=== PATIENT | male | born 1955 | race Caucasian/White ===

== ENCOUNTER 2016-06-26 07:33 | Inpatient (IN) | payer MEDICARE, MEDICAID ==
[~2016-06-26] VITALS: Ht 195.6 cm; Wt 172.0 kg
[~2016-06-26 07:33] MED LIST: ACID1TAB7 PO; AMOX1TAB12 PO; CLIN300C93 PO; CYAN10005 PO; DICL75TA2 PO; DOXY100T PO; FOLI-17 PO; FURO-92 PO; HYDR-3241 PO; HYDR12.547 PO; LISI-167 PO; LISI-170 PO; LISI2.5T PO; LISI5TAB7 PO; METF500T4 PO; MICO14CR TP; MULT-750 PO; TRIA15OI TP; WARF10TA PO; WARF10TA6 PO; WARF2TAB PO
[2016-06-26] MEDS ORDERED: SODIUM CHLORIDE 0.9% 1,000 ML IV ONE (07:56)
[2016-06-26] MEDS ORDERED: SODIUM CHLORIDE 0.9% 1,000ML IVBOLUS ONE ×2 (08:00→08:30)
[2016-06-26 08:19] LABS: HEMOGLOBIN 13.3 g/dL (13.7-18.0)
[2016-06-26 08:29] LABS: BLOOD UREA NITROGEN 25 mg/dL (7-18)
[2016-06-26] MEDS ORDERED: AMPICILLIN/SULBACTAM 3 GM in SODIUM CHLORIDE 0.9% 100 ML IVPB ONE (08:30)
[2016-06-26 08:34] LABS: DIFF TOTAL CELLS COUNTED 100 CELL DIFF
[2016-06-26 08:35] LABS: IS PT STATUS REG ER OR PRE ER? YES
[2016-06-26 08:40] LABS: VERIFY COUNTS? YES
[2016-06-26] MEDS ORDERED: SODIUM CHLORIDE FLUSH 10ML SYR IVF PRN (09:30)
[2016-06-26 13:38] VITALS: BP 123/82
[2016-06-26] MEDS ORDERED: LABETALOL 5MG/ML, 20ML IV PRN (14:00)
[2016-06-26] MEDS ORDERED: BISACODYL 10 MG SUPP PR PRN (14:00)
[2016-06-26] MEDS ORDERED: DEXTROSE 4 GM TAB.CHEW PO PRN (14:00)
[2016-06-26] MEDS ORDERED: ENALAPRILAT 1.25 MG/ML, 2ML IVPush PRN (14:00)
[2016-06-26] MEDS ORDERED: ONDANSETRON 2MG/ML, 2ML IVP PRN (14:00)
[2016-06-26] MEDS ORDERED: GLUCAGON 1 MG IM PRN (14:00)
[2016-06-26] MEDS ORDERED: VANCOMYCIN PER PHARMACY MC PRN (14:00)
[2016-06-26] MEDS ORDERED: PHARMACOKINETIC MONITORING MC PRN (14:00)
[2016-06-26] MEDS ORDERED: ACETAMINOPHEN 325 MG TABLET PO PRN (14:00)
[2016-06-26] MEDS ORDERED: DEXTROSE 50%, 50ML SYRINGE IVPush PRN (14:00)
[2016-06-26] MEDS ORDERED: VANCOMYCIN 2,500 MG in SODIUM CHLORIDE 0.9% 500 ML IV SCH (14:30)
[2016-06-26] MEDS: THIAMINE 200 MG in SODIUM CHLORIDE 0.9% 50 ML IV SCH (15:37)
[2016-06-26] MEDS: ENOXAPARIN 40 MG/0.4 ML SQ SCH (15:40)
[2016-06-26] MEDS: NICOTINE 21 MG/24 HR PATCH.TD24 TD SCH (15:40)
[2016-06-26] MEDS: AMPICILLIN/SULBACTAM 3 GM in SODIUM CHLORIDE 0.9% 100 ML IV SCH ×2 (17:04→22:58)
[2016-06-26] MEDS: INSULIN ASPART 100 UNITS/ML, PEN SQ-INSULIN SCH ×2 (17:15→21:17)
[2016-06-26 19:48] VITALS: BP 134/88
[2016-06-26] MEDS: SODIUM CHLORIDE FLUSH 10ML SYR IVF SCH (21:16)
[2016-06-26] MEDS: INSULIN DETEMIR 100 UNITS/ML, PEN SQ-INSULIN SCH (21:18)
[2016-06-27 01:28] VITALS: BP 129/82
[2016-06-27] MEDS: AMPICILLIN/SULBACTAM 3 GM in SODIUM CHLORIDE 0.9% 100 ML IV SCH ×4 (05:07→23:28)
[2016-06-27 05:27] LABS: HEMOGLOBIN 12.2 g/dL (13.7-18.0)
[2016-06-27 05:33] LABS: BLOOD UREA NITROGEN 17 mg/dL (7-18)
[2016-06-27 05:36] LABS: ASPARTATE AMINO TRANSFERASE 97 U/L (15-37)
[2016-06-27 06:00] LABS: DIFF TOTAL CELLS COUNTED 100 CELL DIFF
[2016-06-27 06:01] LABS: VERIFY COUNTS? YES
[2016-06-27 06:53] VITALS: BP 111/70
[2016-06-27] MEDS: INSULIN ASPART 100 UNITS/ML, PEN SQ-INSULIN SCH ×4 (07:00→20:37)
[2016-06-27] MEDS: THIAMINE 200 MG in SODIUM CHLORIDE 0.9% 50 ML IV SCH (08:45)
[2016-06-27] MEDS: SODIUM CHLORIDE FLUSH 10ML SYR IVF SCH ×2 (08:46→20:37)
[2016-06-27] MEDS: MULTIVITAMIN 1 TABLET PO SCH (08:46)
[2016-06-27] MEDS: FOLIC ACID 1 MG TABLET PO SCH (08:46)
[2016-06-27] MEDS: LISINOPRIL 20 MG TABLET PO SCH (08:46)
[2016-06-27] MEDS: INSULIN DETEMIR 100 UNITS/ML, PEN SQ-INSULIN SCH ×2 (08:47→20:36)
[2016-06-27] MEDS: CYANOCOBALAMIN 1,000 MCG TABLET PO SCH (08:47)
[2016-06-27] MEDS: NICOTINE 21 MG/24 HR PATCH.TD24 TD SCH (14:00)
[2016-06-27 15:02] VITALS: BP 113/67
[2016-06-27] MEDS: ENOXAPARIN 40 MG/0.4 ML SQ SCH (15:07)
[2016-06-27 19:23] VITALS: BP 106/67
[2016-06-27] MEDS: FUROSEMIDE 20 MG/2 ML IV SCH (20:36)
[2016-06-28 01:33] VITALS: BP 94/60
[2016-06-28 05:19] LABS: BLOOD UREA NITROGEN 26 mg/dL (7-18)
[2016-06-28 05:24] LABS: HEMOGLOBIN 11.7 g/dL (13.7-18.0)
[2016-06-28] MEDS: AMPICILLIN/SULBACTAM 3 GM in SODIUM CHLORIDE 0.9% 100 ML IV SCH ×4 (05:40→23:11)
[2016-06-28 05:59] LABS: DIFF TOTAL CELLS COUNTED 100 CELL DIFF
[2016-06-28 06:01] LABS: VERIFY COUNTS? YES
[2016-06-28 06:44] VITALS: BP 145/69
[2016-06-28] MEDS: INSULIN ASPART 100 UNITS/ML, PEN SQ-INSULIN SCH ×4 (07:00→20:59)
[2016-06-28] MEDS: FUROSEMIDE 20 MG/2 ML IV SCH (08:01)
[2016-06-28] MEDS: INSULIN DETEMIR 100 UNITS/ML, PEN SQ-INSULIN SCH ×2 (08:03→21:00)
[2016-06-28] MEDS: MULTIVITAMIN 1 TABLET PO SCH (08:04)
[2016-06-28] MEDS: FOLIC ACID 1 MG TABLET PO SCH (08:04)
[2016-06-28] MEDS: LISINOPRIL 20 MG TABLET PO SCH (08:04)
[2016-06-28] MEDS: CYANOCOBALAMIN 1,000 MCG TABLET PO SCH (08:04)
[2016-06-28] MEDS: SODIUM CHLORIDE FLUSH 10ML SYR IVF SCH ×2 (08:04→20:02)
[2016-06-28] MEDS: THIAMINE 200 MG in SODIUM CHLORIDE 0.9% 50 ML IV SCH (09:27)
[2016-06-28] MEDS: POLYETHYLENE GLYCOL 17 GM PACKET PO PRN (09:27)
[2016-06-28] MEDS ORDERED: VANCOMYCIN PER PHARMACY MC PRN (11:30)
[2016-06-28] MEDS ORDERED: PHARMACOKINETIC MONITORING MC PRN (12:00)
[2016-06-28] MEDS: NICOTINE 21 MG/24 HR PATCH.TD24 TD SCH (12:04)
[2016-06-28] MEDS: VANCOMYCIN 2,500 MG in SODIUM CHLORIDE 0.9% 500 ML IV SCH (12:29)
[2016-06-28] MEDS: ENOXAPARIN 40 MG/0.4 ML SQ SCH (13:44)
[2016-06-28 14:19] VITALS: BP 105/62
[2016-06-28] MEDS ORDERED: VANCOMYCIN 2,500 MG in SODIUM CHLORIDE 0.9% 500 ML IV SCH (18:00)
[2016-06-28 19:54] VITALS: BP 108/66
[2016-06-29 01:53] VITALS: BP 116/71
[2016-06-29] MEDS: AMPICILLIN/SULBACTAM 3 GM in SODIUM CHLORIDE 0.9% 100 ML IV SCH ×4 (04:38→22:52)
[2016-06-29 05:21] LABS: HEMOGLOBIN 11.3 g/dL (13.7-18.0)
[2016-06-29 05:32] LABS: BLOOD UREA NITROGEN 25 mg/dL (7-18)
[2016-06-29 06:13] LABS: DIFF TOTAL CELLS COUNTED 100 CELL DIFF
[2016-06-29 06:15] LABS: ANISOCYTOSIS 1+; VERIFY COUNTS? YES
[2016-06-29 06:16] LABS: LARGE PLATELETS 1+
[2016-06-29 06:54] VITALS: BP 109/64
[2016-06-29] MEDS: INSULIN ASPART 100 UNITS/ML, PEN SQ-INSULIN SCH ×4 (07:00→20:12)
[2016-06-29] MEDS: MULTIVITAMIN 1 TABLET PO SCH (09:15)
[2016-06-29] MEDS: LISINOPRIL 20 MG TABLET PO SCH (09:15)
[2016-06-29] MEDS: FOLIC ACID 1 MG TABLET PO SCH (09:17)
[2016-06-29] MEDS: CYANOCOBALAMIN 1,000 MCG TABLET PO SCH (09:18)
[2016-06-29] MEDS: SODIUM CHLORIDE FLUSH 10ML SYR IVF SCH ×2 (09:20→19:50)
[2016-06-29] MEDS: THIAMINE 200 MG in SODIUM CHLORIDE 0.9% 50 ML IV SCH (09:20)
[2016-06-29] MEDS: INSULIN DETEMIR 100 UNITS/ML, PEN SQ-INSULIN SCH ×2 (09:22→20:12)
[2016-06-29] MEDS: VANCOMYCIN 2,500 MG in SODIUM CHLORIDE 0.9% 500 ML IV SCH (12:35)
[2016-06-29] MEDS: NICOTINE 21 MG/24 HR PATCH.TD24 TD SCH (14:01)
[2016-06-29 14:49] VITALS: BP 122/74
[2016-06-29] MEDS: ENOXAPARIN 40 MG/0.4 ML SQ SCH (14:53)
[2016-06-29 19:38] VITALS: BP 128/75
[2016-06-29] MEDS: POLYETHYLENE GLYCOL 17 GM PACKET PO PRN (19:49)
[2016-06-30 02:00] VITALS: BP 128/76
[2016-06-30] MEDS: AMPICILLIN/SULBACTAM 3 GM in SODIUM CHLORIDE 0.9% 100 ML IV SCH ×4 (04:58→23:16)
[2016-06-30] MEDS: INSULIN ASPART 100 UNITS/ML, PEN SQ-INSULIN SCH ×4 (07:34→20:55)
[2016-06-30] MEDS: LISINOPRIL 20 MG TABLET PO SCH (08:39)
[2016-06-30] MEDS: MULTIVITAMIN 1 TABLET PO SCH (08:39)
[2016-06-30] MEDS: FOLIC ACID 1 MG TABLET PO SCH (08:39)
[2016-06-30] MEDS: INSULIN DETEMIR 100 UNITS/ML, PEN SQ-INSULIN SCH ×2 (08:40→20:56)
[2016-06-30] MEDS: CYANOCOBALAMIN 1,000 MCG TABLET PO SCH (08:40)
[2016-06-30 09:03] VITALS: BP 143/84
[2016-06-30] MEDS: THIAMINE 200 MG in SODIUM CHLORIDE 0.9% 50 ML IV SCH (09:37)
[2016-06-30] MEDS: SODIUM CHLORIDE FLUSH 10ML SYR IVF SCH ×2 (09:37→20:56)
[2016-06-30] MEDS: VANCOMYCIN 2,500 MG in SODIUM CHLORIDE 0.9% 500 ML IV SCH (12:36)
[2016-06-30 14:12] VITALS: BP 144/86
[2016-06-30] MEDS: ENOXAPARIN 40 MG/0.4 ML SQ SCH (14:31)
[2016-06-30] MEDS: NICOTINE 21 MG/24 HR PATCH.TD24 TD SCH (14:32)
[2016-06-30 20:32] VITALS: BP 158/82
[2016-07-01 01:49] VITALS: BP 138/76
[2016-07-01] MEDS: AMPICILLIN/SULBACTAM 3 GM in SODIUM CHLORIDE 0.9% 100 ML IV SCH ×4 (04:52→23:11)
[2016-07-01 05:55] LABS: HEMOGLOBIN 11.4 g/dL (13.7-18.0)
[2016-07-01 06:00] LABS: BLOOD UREA NITROGEN 11 mg/dL (7-18)
[2016-07-01] MEDS ORDERED: VANCOMYCIN 2,500 MG in SODIUM CHLORIDE 0.9% 500 ML IV SCH (06:00)
[2016-07-01 06:37] LABS: DIFF TOTAL CELLS COUNTED 100 CELL DIFF
[2016-07-01 06:40] LABS: ANISOCYTOSIS 1+; VERIFY COUNTS? YES
[2016-07-01] MEDS: INSULIN ASPART 100 UNITS/ML, PEN SQ-INSULIN SCH ×4 (07:00→21:08)
[2016-07-01 07:33] VITALS: BP 157/80
[2016-07-01] MEDS: FOLIC ACID 1 MG TABLET PO SCH (08:31)
[2016-07-01] MEDS: SODIUM CHLORIDE FLUSH 10ML SYR IVF SCH ×2 (08:31→21:09)
[2016-07-01] MEDS: MULTIVITAMIN 1 TABLET PO SCH (08:31)
[2016-07-01] MEDS: LISINOPRIL 20 MG TABLET PO SCH (08:31)
[2016-07-01] MEDS: CYANOCOBALAMIN 1,000 MCG TABLET PO SCH (08:31)
[2016-07-01] MEDS: INSULIN DETEMIR 100 UNITS/ML, PEN SQ-INSULIN SCH ×2 (08:32→21:08)
[2016-07-01] MEDS: THIAMINE 200 MG in SODIUM CHLORIDE 0.9% 50 ML IV SCH (09:09)
[2016-07-01 14:38] VITALS: BP 149/78
[2016-07-01] MEDS: NICOTINE 21 MG/24 HR PATCH.TD24 TD SCH (14:57)
[2016-07-01] MEDS: ENOXAPARIN 40 MG/0.4 ML SQ SCH (14:57)
[2016-07-01] MEDS ORDERED: OMNIPAQUE 350 MG/ML, 100ML BOTTLE ONE (16:40)
[2016-07-01] MEDS: CLINDAMYCIN PMX 600MG/50ML 50 ML IV SCH ×2 (16:41→21:07)
[2016-07-01 18:50] VITALS: BP 156/90
[2016-07-02 01:43] VITALS: BP 168/91
[2016-07-02] MEDS: CLINDAMYCIN PMX 600MG/50ML 50 ML IV SCH ×4 (03:22→21:59)
[2016-07-02] MEDS: AMPICILLIN/SULBACTAM 3 GM in SODIUM CHLORIDE 0.9% 100 ML IV SCH ×4 (04:26→23:08)
[2016-07-02 05:59] LABS: HEMOGLOBIN 10.9 g/dL (13.7-18.0)
[2016-07-02 06:23] LABS: DIFF TOTAL CELLS COUNTED 100 CELL DIFF
[2016-07-02 06:25] LABS: VERIFY COUNTS? YES
[2016-07-02 06:47] VITALS: BP_SYST 150; BP_SYST 166; BP_DIAS 76; BP_DIAS 96
[2016-07-02] MEDS: INSULIN ASPART 100 UNITS/ML, PEN SQ-INSULIN SCH ×4 (07:00→22:00)
[2016-07-02] MEDS: CYANOCOBALAMIN 1,000 MCG TABLET PO SCH (08:53)
[2016-07-02] MEDS: FOLIC ACID 1 MG TABLET PO SCH (08:55)
[2016-07-02] MEDS: LISINOPRIL 20 MG TABLET PO SCH (08:56)
[2016-07-02] MEDS: MULTIVITAMIN 1 TABLET PO SCH (08:57)
[2016-07-02] MEDS: INSULIN DETEMIR 100 UNITS/ML, PEN SQ-INSULIN SCH ×2 (08:59→22:00)
[2016-07-02] MEDS: SODIUM CHLORIDE FLUSH 10ML SYR IVF SCH ×2 (09:45→21:59)
[2016-07-02] MEDS: THIAMINE 200 MG in SODIUM CHLORIDE 0.9% 50 ML IV SCH (09:45)
[2016-07-02 14:17] VITALS: BP 147/86
[2016-07-02] MEDS: NICOTINE 21 MG/24 HR PATCH.TD24 TD SCH (15:08)
[2016-07-02] MEDS: ENOXAPARIN 40 MG/0.4 ML SQ SCH (15:08)
[2016-07-02 19:29] VITALS: BP 150/83
[2016-07-03 01:29] VITALS: BP 143/79
[2016-07-03] MEDS: CLINDAMYCIN PMX 600MG/50ML 50 ML IV SCH ×4 (03:25→23:05)
[2016-07-03] MEDS: AMPICILLIN/SULBACTAM 3 GM in SODIUM CHLORIDE 0.9% 100 ML IV SCH ×3 (05:06→20:10)
[2016-07-03] MEDS: INSULIN ASPART 100 UNITS/ML, PEN SQ-INSULIN SCH ×4 (07:00→20:28)
[2016-07-03 07:01] VITALS: BP 150/87
[2016-07-03] MEDS: INSULIN DETEMIR 100 UNITS/ML, PEN SQ-INSULIN SCH ×2 (08:48→20:27)
[2016-07-03] MEDS: LISINOPRIL 20 MG TABLET PO SCH (08:48)
[2016-07-03] MEDS: FOLIC ACID 1 MG TABLET PO SCH (08:49)
[2016-07-03] MEDS: MULTIVITAMIN 1 TABLET PO SCH (08:49)
[2016-07-03] MEDS: CYANOCOBALAMIN 1,000 MCG TABLET PO SCH (08:49)
[2016-07-03] MEDS: SODIUM CHLORIDE FLUSH 10ML SYR IVF SCH ×2 (08:50→20:31)
[2016-07-03] MEDS: POLYETHYLENE GLYCOL 17 GM PACKET PO PRN (08:56)
[2016-07-03] MEDS: THIAMINE 200 MG in SODIUM CHLORIDE 0.9% 50 ML IV SCH (10:41)
[2016-07-03 13:58] VITALS: BP 158/88
[2016-07-03] MEDS: ENOXAPARIN 40 MG/0.4 ML SQ SCH (14:19)
[2016-07-03] MEDS: NICOTINE 21 MG/24 HR PATCH.TD24 TD SCH (14:20)
[2016-07-03 19:28] VITALS: BP 177/75
[2016-07-03 20:20] VITALS: BP 160/90
[2016-07-04] MEDS: AMPICILLIN/SULBACTAM 3 GM in SODIUM CHLORIDE 0.9% 100 ML IV SCH ×2 (02:22→08:44)
[2016-07-04] MEDS: CLINDAMYCIN PMX 600MG/50ML 50 ML IV SCH ×2 (03:48→10:57)
[2016-07-04 05:52] LABS: HEMOGLOBIN 11.5 g/dL (13.7-18.0)
[2016-07-04 06:10] LABS: DIFF TOTAL CELLS COUNTED 100 CELL DIFF
[2016-07-04 06:12] LABS: VERIFY COUNTS? YES
[2016-07-04] MEDS: INSULIN ASPART 100 UNITS/ML, PEN SQ-INSULIN SCH ×4 (07:00→21:53)
[2016-07-04 07:11] VITALS: BP 153/80
[2016-07-04] MEDS: SODIUM CHLORIDE FLUSH 10ML SYR IVF SCH ×2 (09:00→21:52)
[2016-07-04] MEDS: FOLIC ACID 1 MG TABLET PO SCH (10:03)
[2016-07-04] MEDS: CYANOCOBALAMIN 1,000 MCG TABLET PO SCH (10:03)
[2016-07-04] MEDS: INSULIN DETEMIR 100 UNITS/ML, PEN SQ-INSULIN SCH ×2 (10:03→21:53)
[2016-07-04] MEDS: MULTIVITAMIN 1 TABLET PO SCH (10:03)
[2016-07-04] MEDS: THIAMINE 200 MG in SODIUM CHLORIDE 0.9% 50 ML IV SCH (10:03)
[2016-07-04] MEDS: LISINOPRIL 20 MG TABLET PO SCH (10:03)
[2016-07-04] MEDS: NICOTINE 21 MG/24 HR PATCH.TD24 TD SCH (13:30)
[2016-07-04] MEDS: ENOXAPARIN 40 MG/0.4 ML SQ SCH (13:31)
[2016-07-04] MEDS: CEFTAROLINE 600 MG in SODIUM CHLORIDE 0.9% 100 ML IV SCH ×2 (13:31→21:52)
[2016-07-04 13:56] VITALS: BP 155/88
[2016-07-04 19:51] VITALS: BP 143/88
[2016-07-05 02:01] VITALS: BP 163/84
[2016-07-05] MEDS: CEFTAROLINE 600 MG in SODIUM CHLORIDE 0.9% 100 ML IV SCH ×3 (04:28→20:50)
[2016-07-05 05:48] LABS: BLOOD UREA NITROGEN 8 mg/dL (7-18)
[2016-07-05 06:00] LABS: HEMOGLOBIN 11.1 g/dL (13.7-18.0)
[2016-07-05] MEDS: INSULIN ASPART 100 UNITS/ML, PEN SQ-INSULIN SCH ×4 (07:00→21:04)
[2016-07-05 07:25] LABS: DIFF TOTAL CELLS COUNTED 100 CELL DIFF
[2016-07-05 07:29] LABS: LARGE PLATELETS 1+
[2016-07-05 07:30] LABS: VERIFY COUNTS? YES
[2016-07-05 07:42] VITALS: BP 163/86
[2016-07-05] MEDS: SODIUM CHLORIDE FLUSH 10ML SYR IVF SCH ×2 (09:36→20:50)
[2016-07-05] MEDS: THIAMINE 200 MG in SODIUM CHLORIDE 0.9% 50 ML IV SCH (09:37)
[2016-07-05] MEDS: CYANOCOBALAMIN 1,000 MCG TABLET PO SCH (09:37)
[2016-07-05] MEDS: FOLIC ACID 1 MG TABLET PO SCH (09:38)
[2016-07-05] MEDS: LISINOPRIL 20 MG TABLET PO SCH (09:38)
[2016-07-05] MEDS: MULTIVITAMIN 1 TABLET PO SCH (09:38)
[2016-07-05] MEDS: INSULIN DETEMIR 100 UNITS/ML, PEN SQ-INSULIN SCH ×2 (09:44→21:04)
[2016-07-05 13:02] VITALS: BP 162/83
[2016-07-05] MEDS: NICOTINE 21 MG/24 HR PATCH.TD24 TD SCH (14:00)
[2016-07-05] MEDS: ENOXAPARIN 40 MG/0.4 ML SQ SCH (14:12)
[2016-07-05 19:32] VITALS: BP 166/96
[2016-07-06] MEDS: POLYETHYLENE GLYCOL 17 GM PACKET PO PRN (00:31)
[2016-07-06 00:55] VITALS: BP 160/87
[2016-07-06] MEDS: CEFTAROLINE 600 MG in SODIUM CHLORIDE 0.9% 100 ML IV SCH ×3 (04:25→20:31)
[2016-07-06 06:18] LABS: HEMOGLOBIN 11.5 g/dL (13.7-18.0)
[2016-07-06 06:27] LABS: BLOOD UREA NITROGEN 7 mg/dL (7-18)
[2016-07-06] MEDS: INSULIN ASPART 100 UNITS/ML, PEN SQ-INSULIN SCH ×4 (07:00→20:49)
[2016-07-06 07:29] VITALS: BP 165/88
[2016-07-06] MEDS: THIAMINE 200 MG in SODIUM CHLORIDE 0.9% 50 ML IV SCH (08:24)
[2016-07-06] MEDS: INSULIN DETEMIR 100 UNITS/ML, PEN SQ-INSULIN SCH ×2 (08:24→20:49)
[2016-07-06] MEDS: LISINOPRIL 20 MG TABLET PO SCH (08:25)
[2016-07-06] MEDS: FOLIC ACID 1 MG TABLET PO SCH (08:25)
[2016-07-06] MEDS: CYANOCOBALAMIN 1,000 MCG TABLET PO SCH (08:25)
[2016-07-06] MEDS: MULTIVITAMIN 1 TABLET PO SCH (08:25)
[2016-07-06] MEDS: SODIUM CHLORIDE FLUSH 10ML SYR IVF SCH ×2 (08:31→20:31)
[2016-07-06 09:05] LABS: DIFF TOTAL CELLS COUNTED 100 CELL DIFF
[2016-07-06 09:07] LABS: VERIFY COUNTS? YES
[2016-07-06 09:08] LABS: ANISOCYTOSIS 1+; LARGE PLATELETS 1+
[2016-07-06 13:26] VITALS: BP 160/80
[2016-07-06] MEDS: NICOTINE 21 MG/24 HR PATCH.TD24 TD SCH (14:00)
[2016-07-06] MEDS: ENOXAPARIN 40 MG/0.4 ML SQ SCH (14:05)
[2016-07-06 19:41] VITALS: BP 170/87
[2016-07-07 01:39] VITALS: BP 154/81
[2016-07-07] MEDS: CEFTAROLINE 600 MG in SODIUM CHLORIDE 0.9% 100 ML IV SCH ×3 (04:35→20:34)
[2016-07-07 05:41] LABS: HEMOGLOBIN 11.7 g/dL (13.7-18.0)
[2016-07-07 05:56] LABS: BLOOD UREA NITROGEN 8 mg/dL (7-18)
[2016-07-07] MEDS: INSULIN ASPART 100 UNITS/ML, PEN SQ-INSULIN SCH ×4 (07:00→20:45)
[2016-07-07] MEDS: CYANOCOBALAMIN 1,000 MCG TABLET PO SCH (07:20)
[2016-07-07] MEDS: LISINOPRIL 20 MG TABLET PO SCH (07:20)
[2016-07-07] MEDS: MULTIVITAMIN 1 TABLET PO SCH (07:21)
[2016-07-07] MEDS: SODIUM CHLORIDE FLUSH 10ML SYR IVF SCH ×2 (07:21→20:34)
[2016-07-07] MEDS: FOLIC ACID 1 MG TABLET PO SCH (07:21)
[2016-07-07] MEDS: INSULIN DETEMIR 100 UNITS/ML, PEN SQ-INSULIN SCH ×2 (07:22→20:46)
[2016-07-07 07:36] VITALS: BP 161/84
[2016-07-07] MEDS: THIAMINE 200 MG in SODIUM CHLORIDE 0.9% 50 ML IV SCH (09:35)
[2016-07-07] MEDS: NICOTINE 21 MG/24 HR PATCH.TD24 TD SCH (14:00)
[2016-07-07 14:27] VITALS: BP 149/75
[2016-07-07] MEDS: ENOXAPARIN 40 MG/0.4 ML SQ SCH (15:37)
[2016-07-07 19:11] VITALS: BP 153/87
[2016-07-08] MEDS: ENOXAPARIN 40 MG/0.4 ML SQ SCH ×2 (02:00→13:25)
[2016-07-08 02:20] VITALS: BP 147/80
[2016-07-08] MEDS: CEFTAROLINE 600 MG in SODIUM CHLORIDE 0.9% 100 ML IV SCH ×3 (04:42→20:43)
[2016-07-08 05:59] LABS: HEMOGLOBIN 11.4 g/dL (13.7-18.0)
[2016-07-08 06:07] LABS: ASPARTATE AMINO TRANSFERASE 12 U/L (15-37); BLOOD UREA NITROGEN 9 mg/dL (7-18)
[2016-07-08] MEDS: INSULIN ASPART 100 UNITS/ML, PEN SQ-INSULIN SCH ×4 (07:00→20:47)
[2016-07-08 07:47] VITALS: BP 147/82
[2016-07-08] MEDS: THIAMINE 200 MG in SODIUM CHLORIDE 0.9% 50 ML IV SCH (08:59)
[2016-07-08] MEDS: SODIUM CHLORIDE FLUSH 10ML SYR IVF SCH ×2 (08:59→20:43)
[2016-07-08] MEDS: CYANOCOBALAMIN 1,000 MCG TABLET PO SCH (09:00)
[2016-07-08] MEDS: MULTIVITAMIN 1 TABLET PO SCH (09:00)
[2016-07-08] MEDS: FOLIC ACID 1 MG TABLET PO SCH (09:00)
[2016-07-08] MEDS: LISINOPRIL 20 MG TABLET PO SCH (09:00)
[2016-07-08] MEDS: INSULIN DETEMIR 100 UNITS/ML, PEN SQ-INSULIN SCH ×2 (09:01→20:48)
[2016-07-08] MEDS: NICOTINE 21 MG/24 HR PATCH.TD24 TD SCH (13:20)
[2016-07-08 13:28] VITALS: BP 159/82
[2016-07-08] MEDS: POLYETHYLENE GLYCOL 17 GM PACKET PO PRN (15:35)
[2016-07-08 19:13] VITALS: BP 167/89
[2016-07-09 01:27] VITALS: BP 154/83
[2016-07-09] MEDS: ENOXAPARIN 40 MG/0.4 ML SQ SCH ×2 (01:30→14:38)
[2016-07-09] MEDS: CEFTAROLINE 600 MG in SODIUM CHLORIDE 0.9% 100 ML IV SCH ×3 (04:10→20:27)
[2016-07-09 06:01] LABS: HEMOGLOBIN 11.5 g/dL (13.7-18.0)
[2016-07-09 06:16] LABS: BLOOD UREA NITROGEN 9 mg/dL (7-18)
[2016-07-09] MEDS: INSULIN ASPART 100 UNITS/ML, PEN SQ-INSULIN SCH ×4 (07:00→20:31)
[2016-07-09 07:50] VITALS: BP 135/83
[2016-07-09] MEDS: INSULIN DETEMIR 100 UNITS/ML, PEN SQ-INSULIN SCH ×2 (08:45→20:39)
[2016-07-09] MEDS: SODIUM CHLORIDE FLUSH 10ML SYR IVF SCH ×2 (08:46→20:28)
[2016-07-09] MEDS: THIAMINE 200 MG in SODIUM CHLORIDE 0.9% 50 ML IV SCH (08:46)
[2016-07-09] MEDS: CYANOCOBALAMIN 1,000 MCG TABLET PO SCH (08:46)
[2016-07-09] MEDS: LISINOPRIL 20 MG TABLET PO SCH (08:46)
[2016-07-09] MEDS: FOLIC ACID 1 MG TABLET PO SCH (08:46)
[2016-07-09] MEDS: MULTIVITAMIN 1 TABLET PO SCH (08:46)
[2016-07-09] MEDS: NICOTINE 21 MG/24 HR PATCH.TD24 TD SCH (14:00)
[2016-07-09 15:40] VITALS: BP 146/82
[2016-07-09] MEDS ORDERED: ACETAMINOPHEN 500 MG TABLET PO ONE (18:00)
[2016-07-09] MEDS: DIPHENHYDRAMINE 50 MG CAPSULE PO PRN (18:13)
[2016-07-09 19:46] VITALS: BP 119/70
[2016-07-10] MEDS: ENOXAPARIN 40 MG/0.4 ML SQ SCH ×2 (01:50→14:51)
[2016-07-10 02:15] VITALS: BP 143/74
[2016-07-10] MEDS: CEFTAROLINE 600 MG in SODIUM CHLORIDE 0.9% 100 ML IV SCH (04:17)
[2016-07-10] MEDS: DIPHENHYDRAMINE 50 MG CAPSULE PO PRN (04:23)
[2016-07-10] MEDS: INSULIN ASPART 100 UNITS/ML, PEN SQ-INSULIN SCH ×4 (07:00→21:00)
[2016-07-10 07:59] VITALS: BP 132/75
[2016-07-10] MEDS: SODIUM CHLORIDE FLUSH 10ML SYR IVF SCH ×2 (09:00→19:51)
[2016-07-10] MEDS: FOLIC ACID 1 MG TABLET PO SCH (09:18)
[2016-07-10] MEDS: INSULIN DETEMIR 100 UNITS/ML, PEN SQ-INSULIN SCH ×2 (09:18→21:01)
[2016-07-10] MEDS: MULTIVITAMIN 1 TABLET PO SCH (09:19)
[2016-07-10] MEDS: CYANOCOBALAMIN 1,000 MCG TABLET PO SCH (09:19)
[2016-07-10] MEDS: THIAMINE 100MG TABLET PO SCH (09:20)
[2016-07-10] MEDS: LISINOPRIL 20 MG TABLET PO SCH (09:21)
[2016-07-10] MEDS: DAPTOMYCIN 700 MG in SODIUM CHLORIDE 0.9% 100 ML IV SCH (11:46)
[2016-07-10] MEDS: NICOTINE 21 MG/24 HR PATCH.TD24 TD SCH (14:00)
[2016-07-10 15:01] VITALS: BP 159/80
[2016-07-10 19:29] VITALS: BP 153/75
[2016-07-11 02:17] VITALS: BP 163/84
[2016-07-11] MEDS: ENOXAPARIN 40 MG/0.4 ML SQ SCH ×2 (03:00→15:33)
[2016-07-11 05:56] LABS: HEMOGLOBIN 11.6 g/dL (13.7-18.0)
[2016-07-11] MEDS: INSULIN ASPART 100 UNITS/ML, PEN SQ-INSULIN SCH ×4 (07:00→20:11)
[2016-07-11 07:18] VITALS: BP 150/81
[2016-07-11] MEDS: INSULIN DETEMIR 100 UNITS/ML, PEN SQ-INSULIN SCH ×2 (08:39→20:14)
[2016-07-11] MEDS: SODIUM CHLORIDE FLUSH 10ML SYR IVF SCH ×2 (08:39→20:10)
[2016-07-11] MEDS: FOLIC ACID 1 MG TABLET PO SCH (09:12)
[2016-07-11] MEDS: MULTIVITAMIN 1 TABLET PO SCH (09:13)
[2016-07-11] MEDS: LISINOPRIL 20 MG TABLET PO SCH (09:14)
[2016-07-11] MEDS: CYANOCOBALAMIN 1,000 MCG TABLET PO SCH (09:18)
[2016-07-11] MEDS: THIAMINE 100MG TABLET PO SCH (09:18)
[2016-07-11] MEDS: NICOTINE 21 MG/24 HR PATCH.TD24 TD SCH (09:19)
[2016-07-11] MEDS: DAPTOMYCIN 700 MG in SODIUM CHLORIDE 0.9% 100 ML IV SCH (12:12)
[2016-07-11 14:20] VITALS: BP 144/81
[2016-07-11] MEDS: LINEZOLID 600 MG TABLET PO SCH (18:42)
[2016-07-11 19:55] VITALS: BP 153/85
[2016-07-12 02:00] VITALS: BP 150/82
[2016-07-12] MEDS: ENOXAPARIN 40 MG/0.4 ML SQ SCH ×2 (02:05→15:22)
[2016-07-12] MEDS: POLYETHYLENE GLYCOL 17 GM PACKET PO PRN (03:56)
[2016-07-12] MEDS: DIPHENHYDRAMINE 50 MG CAPSULE PO PRN ×3 (03:56→18:05)
[2016-07-12] MEDS: LINEZOLID 600 MG TABLET PO SCH ×2 (05:42→18:02)
[2016-07-12 06:55] VITALS: BP 148/83
[2016-07-12] MEDS: INSULIN ASPART 100 UNITS/ML, PEN SQ-INSULIN SCH ×4 (07:00→21:00)
[2016-07-12] MEDS: THIAMINE 100MG TABLET PO SCH (07:43)
[2016-07-12] MEDS: LISINOPRIL 20 MG TABLET PO SCH (07:43)
[2016-07-12] MEDS: FOLIC ACID 1 MG TABLET PO SCH (07:43)
[2016-07-12] MEDS: MULTIVITAMIN 1 TABLET PO SCH (07:43)
[2016-07-12] MEDS: CYANOCOBALAMIN 1,000 MCG TABLET PO SCH (07:43)
[2016-07-12] MEDS: SODIUM CHLORIDE FLUSH 10ML SYR IVF SCH ×2 (07:44→21:00)
[2016-07-12] MEDS: INSULIN DETEMIR 100 UNITS/ML, PEN SQ-INSULIN SCH ×2 (07:44→21:00)
[2016-07-12 13:45] VITALS: BP 147/80
[2016-07-12] MEDS: NICOTINE 21 MG/24 HR PATCH.TD24 TD SCH (14:00)
[2016-07-12 18:59] VITALS: BP 143/81
[2016-07-13 00:56] VITALS: BP 147/79
[2016-07-13] MEDS: LINEZOLID 600 MG TABLET PO SCH (05:41)
[2016-07-13] MEDS: ENOXAPARIN 40 MG/0.4 ML SQ SCH (05:41)
[2016-07-13 06:40] VITALS: BP 144/84
[2016-07-13] MEDS: INSULIN ASPART 100 UNITS/ML, PEN SQ-INSULIN SCH ×2 (07:00→11:00)
[2016-07-13] MEDS ORDERED: BISACODYL 10 MG SUPP PR PRN (08:00)
[2016-07-13] MEDS: SODIUM CHLORIDE FLUSH 10ML SYR IVF SCH (08:22)
[2016-07-13] MEDS: THIAMINE 100MG TABLET PO SCH (08:28)
[2016-07-13] MEDS: MULTIVITAMIN 1 TABLET PO SCH (08:28)
[2016-07-13] MEDS: FOLIC ACID 1 MG TABLET PO SCH (08:28)
[2016-07-13] MEDS: LISINOPRIL 20 MG TABLET PO SCH (08:28)
[2016-07-13] MEDS: INSULIN DETEMIR 100 UNITS/ML, PEN SQ-INSULIN SCH (08:28)
[2016-07-13] MEDS: CYANOCOBALAMIN 1,000 MCG TABLET PO SCH (08:29)
[2016-07-13] MEDS ORDERED: MAGNESIUM HYDROXIDE 8%, 30ML UDC PO SCH (09:00)
[2016-07-13] MEDS ORDERED: Linezolid PO (10:50)
[2016-07-13] MEDS ORDERED: THIA100T10 PO (10:50)
[2016-07-13] MEDS ORDERED: METF500T4 PO (10:50)
[2016-07-13] MEDS ORDERED: POLY17PO5 PO (10:50)
[2016-07-13] MEDS ORDERED: FURO-93 PO (10:50)
== END 2016-07-13 13:40 | DRG 871 ==
LOC: ED 09:15 → EDIP 09:17 → ED 09:28 → 3NE 10:44
PROVIDERS: ADMIT Hospitalist; ATTEND Family Medicine
PROC: 0T9B70Z Drainage of Bladder with Drainage Device, Via Natural or Artificial Opening (ICD-10-PCS; principal; 2016-06-26)
DX: A41.9 Sepsis, unspecified organism (principal); E43 Unspecified severe protein-calorie malnutrition; L03.116 Cellulitis of left lower limb; N39.0 Urinary tract infection, site not specified; E87.1 Hypo-osmolality and hyponatremia; Z68.42 Body mass index [BMI] 45.0-49.9, adult; D68.69 Other thrombophilia; D63.8 Anemia in other chronic diseases classified elsewhere; I89.0 Lymphedema, not elsewhere classified; E11.9 Type 2 diabetes mellitus without complications; F10.20 Alcohol dependence, uncomplicated; F17.200 Nicotine dependence, unspecified, uncomplicated; I10 Essential (primary) hypertension; I73.9 Peripheral vascular disease, unspecified; I87.2 Venous insufficiency (chronic) (peripheral); I83.90 Asymptomatic varicose veins of unspecified lower extremity; N28.9 Disorder of kidney and ureter, unspecified; K62.89 Other specified diseases of anus and rectum; I80.02 Phlebitis and thrombophlebitis of superficial vessels of left lower extremity; G89.29 Other chronic pain; M54.9 Dorsalgia, unspecified; E53.8 Deficiency of other specified B group vitamins; E11.51 Type 2 diabetes mellitus with diabetic peripheral angiopathy without gangrene; E66.01 Morbid (severe) obesity due to excess calories; F17.210 Nicotine dependence, cigarettes, uncomplicated; Z83.3 Family history of diabetes mellitus; Z91.19 Patient's noncompliance with other medical treatment and regimen; Z79.01 Long term (current) use of anticoagulants; Z86.72 Personal history of thrombophlebitis; Z82.49 Family history of ischemic heart disease and other diseases of the circulatory system; L27.0 Generalized skin eruption due to drugs and medicaments taken internally; T36.1X5A Adverse effect of cephalosporins and other beta-lactam antibiotics, initial encounter
CPT/HCPCS: 36415; 71010; 80048; 80053; 80202; 81001; 82040; 82550; 82962; 83605; 83735; 84145; 84484; 85025; 85610; 85651; 85730; 86140; 87040; 87070; 87086; 87186; 87205; 93005; 93306; 93922; 96361; 96365; J0295; J0712; J0878; J1650; J1815; J3370; J3411; Q9967; J1940; J7030; J7040

== ENCOUNTER 2016-11-15 15:34 | Inpatient (IN) | payer MEDICARE, MEDICAID ==
[~2016-11-15] VITALS: Ht 198.1 cm; Wt 160.3 kg
[~2016-11-15 15:34] MED LIST changes: +CLIN300C8 PO; -CLIN300C93 PO; +FURO-93 PO; +Linezolid PO; +POLY17PO5 PO; +THIA100T10 PO
[2016-11-15] MEDS ORDERED: SODIUM CHLORIDE FLUSH 10ML SYR IVF ONE (16:00)
[2016-11-15] MEDS ORDERED: SODIUM CHLORIDE 0.9% 1,000ML IVBOLUS ONE ×2 (16:00→16:30)
[2016-11-15] MEDS ORDERED: LORazepam 2 MG/ML, 1ML IVPush ONE (16:00)
[2016-11-15] MEDS ORDERED: ASPIRIN 81 MG TABLET CHEW PO ONE (16:00)
[2016-11-15] MEDS ORDERED: ACETAMINOPHEN 325 MG TABLET PO ONE (16:00)
[2016-11-15] MEDS ORDERED: ACETAMINOPHEN 325 MG TABLET ONE (16:37)
[2016-11-15] MEDS ORDERED: ASPIRIN 81 MG TABLET CHEW ONE (16:37)
[2016-11-15] MEDS ORDERED: LORazepam 2 MG/ML, 1ML ONE (16:38)
[2016-11-15 16:40] LABS: HEMATOCRIT 44.3 % (39.2-51.8); WHITE BLOOD COUNT 11.1 x10^3/uL (3.4-10)
[2016-11-15 16:49] LABS: ASPARTATE AMINO TRANSFERASE 18 U/L (15-37); BLOOD UREA NITROGEN 15 mg/dL (7-18)
[2016-11-15 16:57] LABS: IS PT STATUS REG ER OR PRE ER? YES
[2016-11-15] MEDS ORDERED: PIPERACILLIN/TAZO/PMX 3.375GM 50 ML IV ONE (20:00)
[2016-11-15] MEDS ORDERED: PLEASE ENTER HEIGHT AND WEIGHT MC SCH (20:00)
[2016-11-15] MEDS: CEFTRIAXONE PMX 1GM/50ML 50 ML IV SCH (20:30)
[2016-11-15] MEDS ORDERED: ONDANSETRON 2MG/ML, 2ML IVPush PRN (21:00)
[2016-11-15] MEDS ORDERED: TEMAZEPAM 15 MG CAPSULE PO PRN (21:00)
[2016-11-15] MEDS ORDERED: ENALAPRILAT 1.25 MG/ML, 2ML IVPush PRN (21:00)
[2016-11-15] MEDS ORDERED: KETOROLAC 30 MG/1 ML IVPush PRN (21:00)
[2016-11-15] MEDS ORDERED: PIPERACILLIN/TAZO/PMX 3.375GM 50 ML ONE (21:09)
[2016-11-15] MEDS ORDERED: ENOXAPARIN 40 MG/0.4 ML ONE (21:09)
[2016-11-15] MEDS ORDERED: CEFTRIAXONE PMX 1GM/50ML 50 ML ONE (21:09)
[2016-11-15] MEDS: ENOXAPARIN 40 MG/0.4 ML SQ SCH (21:15)
[2016-11-15] MEDS: SODIUM CHLORIDE 0.9% 1,000 ML IV SCH (21:16)
[2016-11-15] MEDS: ACETAMINOPHEN 325 MG TABLET PO PRN (22:54)
[2016-11-16] VITALS: BP 170/65
[2016-11-16 01:42] VITALS: BP 141/93
[2016-11-16 05:40] LABS: BLOOD UREA NITROGEN 12 mg/dL (7-18)
[2016-11-16 06:20] LABS: HEMATOCRIT 39.8 % (39.2-51.8); HEMOGLOBIN 13.8 g/dL (13.7-18.0); WHITE BLOOD COUNT 11.5 x10^3/uL (3.4-10)
[2016-11-16 07:07] VITALS: BP 150/98
[2016-11-16] MEDS: ACETAMINOPHEN 325 MG TABLET PO PRN ×2 (07:40→17:26)
[2016-11-16] MEDS: SODIUM CHLORIDE 0.9% 1,000 ML IV SCH ×2 (08:56→14:40)
[2016-11-16] MEDS: CHLORDIAZEPOXIDE 25 MG CAPSULE PO PRN (08:56)
[2016-11-16] MEDS: LISINOPRIL 20 MG TABLET PO SCH (09:00)
[2016-11-16 09:59] LABS: DAU SCREEN DISCLAIMER
[2016-11-16 12:45] VITALS: BP 130/78
[2016-11-16 19:02] VITALS: BP 153/101
[2016-11-16] MEDS ORDERED: OMNIPAQUE 350 MG/ML, 100ML BOTTLE ONE (19:56)
[2016-11-16] MEDS: CEFTRIAXONE PMX 1GM/50ML 50 ML IV SCH (20:53)
[2016-11-16] MEDS: ENOXAPARIN 40 MG/0.4 ML SQ SCH (21:00)
[2016-11-17] MEDS: SODIUM CHLORIDE 0.9% 1,000 ML IV SCH ×3 (00:35→21:18)
[2016-11-17 01:16] VITALS: BP 158/75
[2016-11-17] MEDS: ACETAMINOPHEN 325 MG TABLET PO PRN ×3 (02:13→15:00)
[2016-11-17 05:24] LABS: HEMOGLOBIN 13.1 g/dL (13.7-18.0); WHITE BLOOD COUNT 8.3 x10^3/uL (3.4-10)
[2016-11-17 09:15] VITALS: BP 150/91
[2016-11-17] MEDS: LISINOPRIL 20 MG TABLET PO SCH (09:35)
[2016-11-17] MEDS: CHLORDIAZEPOXIDE 25 MG CAPSULE PO PRN (10:27)
[2016-11-17 14:00] VITALS: BP 146/92
[2016-11-17] MEDS ORDERED: ENALAPRILAT 1.25 MG/ML, 2ML IVPush PRN (14:30)
[2016-11-17] MEDS ORDERED: CHLORDIAZEPOXIDE 25 MG CAPSULE PO PRN (14:30)
[2016-11-17] MEDS ORDERED: TEMAZEPAM 15 MG CAPSULE PO PRN (14:30)
[2016-11-17] MEDS ORDERED: MAGNESIUM SULFATE PMX 2GM/50ML 50 ML IV ONE (14:30)
[2016-11-17] MEDS ORDERED: ONDANSETRON 2MG/ML, 2ML IVPush PRN (14:30)
[2016-11-17 20:15] VITALS: BP 142/85
[2016-11-17] MEDS: ENOXAPARIN 40 MG/0.4 ML SQ SCH (21:18)
[2016-11-17] MEDS: CEFTRIAXONE PMX 1GM/50ML 50 ML IV SCH (21:18)
[2016-11-18 02:12] VITALS: BP 154/94
[2016-11-18] MEDS: SODIUM CHLORIDE 0.9% 1,000 ML IV SCH ×2 (04:20→11:29)
[2016-11-18 05:09] LABS: BLOOD UREA NITROGEN 14 mg/dL (7-18)
[2016-11-18 05:13] LABS: ASPARTATE AMINO TRANSFERASE 29 U/L (15-37)
[2016-11-18 07:35] VITALS: BP 164/84
[2016-11-18] MEDS: LISINOPRIL 20 MG TABLET PO SCH (08:38)
[2016-11-18] MEDS: ACETAMINOPHEN 325 MG TABLET PO PRN (11:42)
[2016-11-18 12:35] VITALS: BP 162/91
[2016-11-18] MEDS ORDERED: AMOX1TAB64 PO (15:51)
== END 2016-11-18 15:46 | disposition home or self-care (01) | DRG 871 ==
LOC: ED 17:25 → EDIP 20:37 → 3NE 22:13
PROVIDERS: ADMIT Internal Medicine; ATTEND Family Medicine
DX: A41.9 Sepsis, unspecified organism (principal); E43 Unspecified severe protein-calorie malnutrition; E87.1 Hypo-osmolality and hyponatremia; L97.829 Non-pressure chronic ulcer of other part of left lower leg with unspecified severity; L97.819 Non-pressure chronic ulcer of other part of right lower leg with unspecified severity; Z68.41 Body mass index [BMI] 40.0-44.9, adult; I10 Essential (primary) hypertension; E11.9 Type 2 diabetes mellitus without complications; E66.01 Morbid (severe) obesity due to excess calories; F10.10 Alcohol abuse, uncomplicated; I87.2 Venous insufficiency (chronic) (peripheral); I87.8 Other specified disorders of veins; K29.20 Alcoholic gastritis without bleeding; M54.9 Dorsalgia, unspecified; G89.29 Other chronic pain; Z87.891 Personal history of nicotine dependence; Z88.8 Allergy status to other drugs, medicaments and biological substances
CPT/HCPCS: 36415; 71010; 71275; 80048; 80053; 80307; 81001; 83605; 83690; 83735; 84145; 84484; 85025; 85379; 85610; 87040; 93005; 96361; 96374; J0696; J1650; J1885; J2543; Q9967; J2060; J3475; J7030

== ENCOUNTER 2017-06-12 17:45 | Inpatient (IN) | payer MEDICARE, MEDICAID ==
[~2017-06-12] VITALS: Ht 196.8 cm; Wt 164.9 kg
[~2017-06-12 17:45] MED LIST changes: +AMOX1TAB64 PO
[2017-06-12] MEDS ORDERED: ASPIRIN 81 MG TABLET CHEW PO ONE (18:00)
[2017-06-12] MEDS ORDERED: SODIUM CHLORIDE FLUSH 10ML SYR IVF ONE (18:00)
[2017-06-12] MEDS ORDERED: NITROGLYCERIN SINGLE TAB 0.4 MG SL ONE (18:05)
[2017-06-12] MEDS: NITROGLYCERIN SINGLE TAB 0.4 MG SL PRN ×2 (18:19→19:47)
[2017-06-12 18:21] LABS: MEAN CORPUSCULAR HEMOGLOBIN 32.2 pg (27.5-34.5); MEAN CORPUSCULAR HGB CONC 34.1 g/dL (33.2-36.2); MEAN CORPUSCULAR VOLUME 94.4 fL (81-97); MEAN PLATELET VOLUME 8.8 fL (7.4-10.4); PLATELET COUNT 262 x10^3/uL (130-400); RED CELL DISTRIBUTION WIDTH 14.5 % (9.4-14.8)
[2017-06-12] MEDS ORDERED: LORazepam 1MG TABLET PO ONE (18:30)
[2017-06-12 18:34] LABS: ALANINE AMINOTRANSFERASE 19 U/L (12-78); ALBUMIN 3.1 g/dL (3.4-5.0); ANION GAP 8 mmol/L (5-15); CALCIUM 8.6 mg/dL (8.5-10.1); CHLORIDE 103 mmol/L (98-107); CREATININE 0.93 mg/dL (0.7-1.3)
[2017-06-12 18:36] LABS: D-DIMER 0.33 ug/mlFEU (0.00-0.52); INTERNATIONAL NORMALIZED RATIO 0.99 (0.93-1.1); PROTHROMBIN TIME 10.3 Seconds (9.6-11.5)
[2017-06-12] MEDS ORDERED: LORazepam 1MG TABLET ONE (18:37)
[2017-06-12 18:38] LABS: ALKALINE PHOSPHATASE 51 U/L (45-117); BILIRUBIN,TOTAL 0.7 mg/dL (0.2-1.0); TOTAL PROTEIN 7.8 g/dL (6.4-8.2); TROPONIN I 0.015 ng/mL (0.000-0.045)
[2017-06-12 19:09] LABS: MD YES
[2017-06-12 19:11] LABS: BAND#(MANUAL) 1.22 x10^3/uL; BANDS%(MANUAL) 6 % (0-7); LYMPH#(MANUAL) 1.02 x10^3/uL (1-3.4); LYMPHS% (MANUAL) 5 % (22-44); MONOS#(MANUAL) 0.61 x10^3/uL (0.3-2.7); MONOS% (MANUAL) 3 % (2-9); SEG#(MANUAL) 17.54 x10^3/uL (1.8-6.8); SEGS% (MANUAL) 86 % (42-75)
[2017-06-12 19:12] LABS: <PLATELET ESTIMATE> ADEQUATE; <PLT MORPHOLOGY> NORMAL PLT MORPH; POLYCHROMASIA 1+
[2017-06-12] MEDS ORDERED: SODIUM CHLORIDE 0.9% 1,000 ML IV ONE (19:22)
[2017-06-12] MEDS ORDERED: SODIUM CHLORIDE 0.9% 1,000ML IVBOLUS ONE (19:30)
[2017-06-12] MEDS ORDERED: LEVOFLOXACIN/PMX 750MG/150ML 150 ML IVPB ONE (19:30)
[2017-06-12] MEDS ORDERED: LEVOFLOXACIN/PMX 750MG/150ML 150 ML ONE (19:35)
[2017-06-12] MEDS ORDERED: LEVOFLOXACIN/PMX 750MG/150ML 150 ML IV SCH (20:00)
[2017-06-12] MEDS ORDERED: ACETAMINOPHEN 325 MG TABLET PO PRN (20:30)
[2017-06-12] MEDS ORDERED: GUAIFENESIN/DM 200-20MG, 10ML UDC PO PRN (20:30)
[2017-06-12] MEDS ORDERED: POLYETHYLENE GLYCOL 17 GM PACKET PO PRN (20:30)
[2017-06-12] MEDS ORDERED: KETOROLAC 30 MG/1 ML IVPush PRN (20:30)
[2017-06-12] MEDS ORDERED: ONDANSETRON 2MG/ML, 2ML IVPush PRN (20:30)
[2017-06-12] MEDS ORDERED: BISACODYL 10 MG SUPP PR PRN (20:30)
[2017-06-12] MEDS ORDERED: DICLOFENAC SODIUM 75 MG TABLET.DR PO SCH (21:00)
[2017-06-12 21:27] LABS: MICROSCOPIC INDICATED
[2017-06-12 21:29] LABS: CULTURE INDICATED? YES
[2017-06-12 21:31] VITALS: BP 120/61
[2017-06-12] MEDS: HEPARIN 5,000 UNITS/ML, 1ML SQ SCH (22:12)
[2017-06-12] MEDS: metFORMIN 500 MG TABLET PO SCH (22:12)
[2017-06-12] MEDS: SODIUM CHLORIDE FLUSH 10ML SYR IVF SCH (22:12)
[2017-06-13 03:14] VITALS: BP 143/81
[2017-06-13 05:12] LABS: ALBUMIN 2.6 g/dL (3.4-5.0); ANION GAP 7 mmol/L (5-15); CALCIUM 8.3 mg/dL (8.5-10.1); CHLORIDE 105 mmol/L (98-107)
[2017-06-13 05:16] LABS: ALANINE AMINOTRANSFERASE 14 U/L (12-78); ALKALINE PHOSPHATASE 44 U/L (45-117); BILIRUBIN,TOTAL 0.7 mg/dL (0.2-1.0); CREATININE 0.92 mg/dL (0.7-1.3); TOTAL PROTEIN 6.9 g/dL (6.4-8.2)
[2017-06-13] MEDS: HEPARIN 5,000 UNITS/ML, 1ML SQ SCH ×3 (05:39→23:17)
[2017-06-13 05:56] LABS: MEAN CORPUSCULAR HEMOGLOBIN 31.9 pg (27.5-34.5); MEAN CORPUSCULAR HGB CONC 34.1 g/dL (33.2-36.2); MEAN CORPUSCULAR VOLUME 93.6 fL (81-97); MEAN PLATELET VOLUME 8.7 fL (7.4-10.4); PLATELET COUNT 222 x10^3/uL (130-400); RED BLOOD COUNT 3.59 x10^6/uL (4.38-5.82); RED CELL DISTRIBUTION WIDTH 14.8 % (9.4-14.8)
[2017-06-13 05:57] LABS: BASOPHILS # (AUTO) 0.02 x10^3/uL (0-0.1); BASOPHILS % (AUTO) 0 % (0-1); EOSINOPHILS # (AUTO) 0.01 x10^3/uL (0-0.4); EOSINOPHILS % (AUTO) 0 % (1-7); LYMPHOCYTES # (AUTO) 0.65 x10^3/uL (1-3.4); LYMPHOCYTES % (AUTO) 5 % (22-44); MD SCAN; MONOCYTES # (AUTO) 0.56 x10^3/uL (0.2-0.8); MONOCYTES % (AUTO) 4 % (2-9); NEUTROPHILS # (AUTO) 11.74 x10^3/uL (1.8-6.8); NEUTROPHILS % (AUTO) 91 % (42-75)
[2017-06-13 07:26] VITALS: BP 160/84
[2017-06-13] MEDS: LISINOPRIL 10 MG TABLET PO SCH (08:29)
[2017-06-13] MEDS: FOLIC ACID 1 MG TABLET PO SCH (08:29)
[2017-06-13] MEDS: FUROSEMIDE 20 MG TABLET PO SCH (08:29)
[2017-06-13] MEDS: MULTIVITAMIN 1 TABLET PO SCH (08:29)
[2017-06-13] MEDS: SENNA/DOCUSATE TABLET PO SCH (08:30)
[2017-06-13] MEDS: CYANOCOBALAMIN 1,000 MCG TABLET PO SCH (08:30)
[2017-06-13] MEDS: metFORMIN 500 MG TABLET PO SCH ×2 (08:34→19:58)
[2017-06-13] MEDS: SODIUM CHLORIDE FLUSH 10ML SYR IVF SCH ×2 (08:34→19:57)
[2017-06-13] MEDS: THIAMINE 100MG TABLET PO SCH (08:34)
[2017-06-13 13:16] VITALS: BP 144/84
[2017-06-13 19:00] VITALS: BP 144/83
[2017-06-13] MEDS ORDERED: LEVOFLOXACIN/PMX 750MG/150ML 150 ML IV SCH (19:30)
[2017-06-14 00:11] VITALS: BP 155/96
[2017-06-14 04:59] LABS: BASOPHILS # (AUTO) 0.04 x10^3/uL (0-0.1); BASOPHILS % (AUTO) 1 % (0-1); EOSINOPHILS # (AUTO) 0.18 x10^3/uL (0-0.4); EOSINOPHILS % (AUTO) 2 % (1-7); LYMPHOCYTES # (AUTO) 1.25 x10^3/uL (1-3.4); LYMPHOCYTES % (AUTO) 16 % (22-44); MD NO; MEAN CORPUSCULAR HEMOGLOBIN 31.7 pg (27.5-34.5); MEAN CORPUSCULAR HGB CONC 33.4 g/dL (33.2-36.2); MEAN CORPUSCULAR VOLUME 94.8 fL (81-97); MEAN PLATELET VOLUME 9.5 fL (7.4-10.4); MONOCYTES # (AUTO) 0.59 x10^3/uL (0.2-0.8); MONOCYTES % (AUTO) 8 % (2-9); NEUTROPHILS # (AUTO) 5.65 x10^3/uL (1.8-6.8); NEUTROPHILS % (AUTO) 73 % (42-75); PLATELET COUNT 245 x10^3/uL (130-400); RED BLOOD COUNT 3.71 x10^6/uL (4.38-5.82); RED CELL DISTRIBUTION WIDTH 14.7 % (9.4-14.8)
[2017-06-14 05:04] LABS: ALBUMIN 2.7 g/dL (3.4-5.0); ANION GAP 4 mmol/L (5-15); CHLORIDE 104 mmol/L (98-107)
[2017-06-14 05:07] LABS: ALANINE AMINOTRANSFERASE 17 U/L (12-78); ALKALINE PHOSPHATASE 49 U/L (45-117); BILIRUBIN,TOTAL 0.4 mg/dL (0.2-1.0); CREATININE 0.86 mg/dL (0.7-1.3); TOTAL PROTEIN 7.4 g/dL (6.4-8.2)
[2017-06-14] MEDS: HEPARIN 5,000 UNITS/ML, 1ML SQ SCH ×2 (06:27→14:00)
[2017-06-14 06:31] VITALS: BP 155/92
[2017-06-14] MEDS: FUROSEMIDE 20 MG TABLET PO SCH (08:19)
[2017-06-14] MEDS: MULTIVITAMIN 1 TABLET PO SCH (08:19)
[2017-06-14] MEDS: FOLIC ACID 1 MG TABLET PO SCH (08:19)
[2017-06-14] MEDS: LISINOPRIL 10 MG TABLET PO SCH (08:19)
[2017-06-14] MEDS: CYANOCOBALAMIN 1,000 MCG TABLET PO SCH (08:19)
[2017-06-14] MEDS: metFORMIN 500 MG TABLET PO SCH (08:19)
[2017-06-14] MEDS: SENNA/DOCUSATE TABLET PO SCH (08:21)
[2017-06-14] MEDS: THIAMINE 100MG TABLET PO SCH (08:21)
[2017-06-14] MEDS: SODIUM CHLORIDE FLUSH 10ML SYR IVF SCH (08:22)
[2017-06-14 12:40] VITALS: BP 146/85
[2017-06-14] MEDS ORDERED: CIPR500T87 PO (13:58)
[2017-06-14] MEDS ORDERED: CIPROFLOXACIN 500 MG TABLET PO SCH (21:00)
== END 2017-06-14 14:25 | disposition home or self-care (01) | DRG 897 ==
LOC: ED 19:29 → EDIP 20:14 → 3NW 22:07
PROVIDERS: ADMIT Hospitalist; ATTEND Hospitalist
DX: F10.239 Alcohol dependence with withdrawal, unspecified (principal); I11.0 Hypertensive heart disease with heart failure; E44.0 Moderate protein-calorie malnutrition; R65.10 Systemic inflammatory response syndrome (SIRS) of non-infectious origin without acute organ dysfunction; I50.9 Heart failure, unspecified; Z68.41 Body mass index [BMI] 40.0-44.9, adult; N39.0 Urinary tract infection, site not specified; E87.1 Hypo-osmolality and hyponatremia; D64.9 Anemia, unspecified; E11.9 Type 2 diabetes mellitus without complications; I87.2 Venous insufficiency (chronic) (peripheral); I89.0 Lymphedema, not elsewhere classified; Z88.8 Allergy status to other drugs, medicaments and biological substances; E66.9 Obesity, unspecified; F17.200 Nicotine dependence, unspecified, uncomplicated; G89.29 Other chronic pain; I87.8 Other specified disorders of veins; Z79.82 Long term (current) use of aspirin
CPT/HCPCS: 36415; 71045; 80053; 81001; 82962; 83036; 83605; 83735; 83880; 84100; 84484; 85025; 85379; 85610; 85730; 87040; 87086; 93005; 93970; 96360; J1644; J1956; J7030

== ENCOUNTER 2018-02-21 07:28 | Inpatient (IN) | payer MEDICARE, MEDICAID ==
[~2018-02-21] VITALS: Ht 195.6 cm; Wt 169.5 kg
[~2018-02-21 07:28] MED LIST changes: +AMLO5TAB7 PO; +CEPH-368 PO; +CIPR500T87 PO; +FURO20TA3 PO; +INSU100I13 SQ-INSULIN; +METF500T17 PO; -METF500T4 PO; +WARF10TA43 PO; -WARF10TA6 PO
[2018-02-21 08:19] LABS: BASOPHILS # (AUTO) 0.01 x10^3/uL (0-0.1); BASOPHILS % (AUTO) 0 % (0-1); EOSINOPHILS # (AUTO) 0.05 x10^3/uL (0-0.4); EOSINOPHILS % (AUTO) 1 % (1-7); LYMPHOCYTES # (AUTO) 0.62 x10^3/uL (1-3.4); LYMPHOCYTES % (AUTO) 6 % (22-44); MD NO; MEAN CORPUSCULAR HEMOGLOBIN 31.6 pg (27.5-34.5); MEAN CORPUSCULAR HGB CONC 33.5 g/dL (33.2-36.2); MEAN CORPUSCULAR VOLUME 94.2 fL (81-97); MEAN PLATELET VOLUME 9.3 fL (7.4-10.4); MONOCYTES # (AUTO) 0.73 x10^3/uL (0.2-0.8); MONOCYTES % (AUTO) 7 % (2-9); NEUTROPHILS # (AUTO) 8.65 x10^3/uL (1.8-6.8); NEUTROPHILS % (AUTO) 86 % (42-75); PLATELET COUNT 243 x10^3/uL (130-400); RED BLOOD COUNT 4.15 x10^6/uL (4.38-5.82)
[2018-02-21 08:23] LABS: INTERNATIONAL NORMALIZED RATIO 1.04 (0.93-1.1); PROTHROMBIN TIME 10.8 Seconds (9.6-11.5)
[2018-02-21 08:26] LABS: ALBUMIN 2.9 g/dL (3.4-5.0); ANION GAP 6 mmol/L (5-15); CALCIUM 8.8 mg/dL (8.5-10.1); CHLORIDE 105 mmol/L (98-107); CREATININE 0.94 mg/dL (0.7-1.3)
[2018-02-21 08:29] LABS: TROPONIN I < 0.015 ng/mL (0.000-0.045)
[2018-02-21] MEDS ORDERED: AMPICILLIN/SULBACTAM 3 GM in SODIUM CHLORIDE 0.9% 100 ML IV ONE (09:30)
[2018-02-21] MEDS ORDERED: POLYETHYLENE GLYCOL 17 GM PACKET PO PRN (10:00)
[2018-02-21] MEDS ORDERED: ONDANSETRON 2MG/ML, 2ML IVPush PRN (10:00)
[2018-02-21] MEDS ORDERED: LABETALOL 5MG/ML, 20ML IVPush PRN (10:00)
[2018-02-21] MEDS ORDERED: ONDANSETRON ODT 4 MG PO PRN (10:00)
[2018-02-21] MEDS ORDERED: DEXTROSE 4 GM TAB.CHEW PO PRN (12:00)
[2018-02-21] MEDS: INSULIN LISPRO 100 UNITS/ML, PEN SQ-INSULIN SCH ×3 (12:00→20:52)
[2018-02-21] MEDS: SODIUM CHLORIDE FLUSH 10ML SYR IVF SCH ×2 (12:00→20:53)
[2018-02-21] MEDS ORDERED: DEXTROSE 50%, 50ML SYRINGE IVPush PRN (12:00)
[2018-02-21] MEDS ORDERED: GLUCAGON 1 MG IM PRN (12:00)
[2018-02-21 12:15] VITALS: BP 145/86
[2018-02-21] MEDS ORDERED: VANCOMYCIN PER PHARMACY MC PRN (13:30)
[2018-02-21] MEDS ORDERED: PHARMACOKINETIC CONSULTATION MC ONE (13:30)
[2018-02-21] MEDS ORDERED: PHARMACOKINETIC MONITORING MC PRN (13:30)
[2018-02-21] MEDS: AMPICILLIN/SULBACTAM 3 GM in SODIUM CHLORIDE 0.9% 100 ML IV SCH ×2 (13:56→20:53)
[2018-02-21] MEDS: ENOXAPARIN 40 MG/0.4 ML SQ SCH (15:03)
[2018-02-21] MEDS: VANCOMYCIN 2,400 MG in SODIUM CHLORIDE 0.9% 500 ML IV SCH (15:03)
[2018-02-21] MEDS: HYDROcodone/APAP 5/325 TABLET PO PRN ×2 (15:40→21:57)
[2018-02-21 20:11] VITALS: BP 140/82
[2018-02-21] MEDS: LISINOPRIL 20 MG TABLET PO SCH (20:53)
[2018-02-21] MEDS: INSULIN GLARGINE 100 UNITS/ML, PEN SQ-INSULIN SCH (20:53)
[2018-02-21 20:55] VITALS: BP 149/82
[2018-02-22 01:25] VITALS: BP 127/78
[2018-02-22] MEDS: AMPICILLIN/SULBACTAM 3 GM in SODIUM CHLORIDE 0.9% 100 ML IV SCH ×4 (02:38→21:58)
[2018-02-22 05:19] LABS: BASOPHILS # (AUTO) 0.09 x10^3/uL (0-0.1); BASOPHILS % (AUTO) 1 % (0-1); EOSINOPHILS # (AUTO) 0.03 x10^3/uL (0-0.4); EOSINOPHILS % (AUTO) 0 % (1-7); LYMPHOCYTES # (AUTO) 0.86 x10^3/uL (1-3.4); LYMPHOCYTES % (AUTO) 7 % (22-44); MD NO; MEAN CORPUSCULAR HEMOGLOBIN 31.9 pg (27.5-34.5); MEAN CORPUSCULAR HGB CONC 33.9 g/dL (33.2-36.2); MEAN CORPUSCULAR VOLUME 94.1 fL (81-97); MEAN PLATELET VOLUME 9.3 fL (7.4-10.4); MONOCYTES # (AUTO) 1.08 x10^3/uL (0.2-0.8); MONOCYTES % (AUTO) 8 % (2-9); NEUTROPHILS # (AUTO) 11.01 x10^3/uL (1.8-6.8); NEUTROPHILS % (AUTO) 84 % (42-75); PLATELET COUNT 277 x10^3/uL (130-400); RED BLOOD COUNT 4.14 x10^6/uL (4.38-5.82); RED CELL DISTRIBUTION WIDTH 14.2 % (9.4-14.8)
[2018-02-22 05:28] LABS: ALBUMIN 2.7 g/dL (3.4-5.0); CALCIUM 8.2 mg/dL (8.5-10.1); CHLORIDE 100 mmol/L (98-107)
[2018-02-22 05:40] LABS: ALANINE AMINOTRANSFERASE 34 U/L (12-78); ALKALINE PHOSPHATASE 90 U/L (45-117); ANION GAP 8 mmol/L (5-15); BILIRUBIN,TOTAL 1.3 mg/dL (0.2-1.0); CREATININE 0.86 mg/dL (0.7-1.3); TOTAL PROTEIN 7.5 g/dL (6.4-8.2)
[2018-02-22] MEDS: HYDROcodone/APAP 5/325 TABLET PO PRN (05:56)
[2018-02-22 06:53] VITALS: BP 143/81
[2018-02-22] MEDS ORDERED: MAGNESIUM SULFATE PMX 2GM/50ML 50 ML IV ONE (07:00)
[2018-02-22] MEDS: INSULIN LISPRO 100 UNITS/ML, PEN SQ-INSULIN SCH ×4 (07:00→21:58)
[2018-02-22] MEDS: VANCOMYCIN 2,400 MG in SODIUM CHLORIDE 0.9% 500 ML IV SCH (08:58)
[2018-02-22] MEDS: SODIUM CHLORIDE FLUSH 10ML SYR IVF SCH ×2 (08:59→21:00)
[2018-02-22] MEDS: THIAMINE 100MG TABLET PO SCH (08:59)
[2018-02-22] MEDS: MULTIVITAMIN 1 TABLET PO SCH (08:59)
[2018-02-22] MEDS: FOLIC ACID 1 MG TABLET PO SCH (08:59)
[2018-02-22] MEDS: LISINOPRIL 20 MG TABLET PO SCH ×2 (08:59→21:59)
[2018-02-22] MEDS: SENNA/DOCUSATE TABLET PO SCH (08:59)
[2018-02-22] MEDS: CYANOCOBALAMIN 1,000 MCG TABLET PO SCH (09:00)
[2018-02-22 13:10] VITALS: BP 146/78
[2018-02-22 14:48] LABS: HEMOGLOBIN A1C 7.1 % (4.2-6.3)
[2018-02-22] MEDS: ENOXAPARIN 40 MG/0.4 ML SQ SCH (15:12)
[2018-02-22 20:01] VITALS: BP 154/79
[2018-02-22] MEDS: INSULIN GLARGINE 100 UNITS/ML, PEN SQ-INSULIN SCH (21:59)
[2018-02-22] MEDS ORDERED: ACETAMINOPHEN 325 MG TABLET PO PRN (22:00)
[2018-02-23 00:08] VITALS: BP 133/70
[2018-02-23] MEDS: VANCOMYCIN 2,400 MG in SODIUM CHLORIDE 0.9% 500 ML IV SCH (01:19)
[2018-02-23] MEDS: AMPICILLIN/SULBACTAM 3 GM in SODIUM CHLORIDE 0.9% 100 ML IV SCH ×4 (04:06→21:42)
[2018-02-23 04:49] LABS: BASOPHILS # (AUTO) 0.01 x10^3/uL (0-0.1); BASOPHILS % (AUTO) 0 % (0-1); EOSINOPHILS # (AUTO) 0.07 x10^3/uL (0-0.4); EOSINOPHILS % (AUTO) 1 % (1-7); LYMPHOCYTES # (AUTO) 0.86 x10^3/uL (1-3.4); LYMPHOCYTES % (AUTO) 8 % (22-44); MD NO; MEAN CORPUSCULAR HEMOGLOBIN 31.8 pg (27.5-34.5); MEAN CORPUSCULAR HGB CONC 33.7 g/dL (33.2-36.2); MEAN CORPUSCULAR VOLUME 94.2 fL (81-97); MEAN PLATELET VOLUME 9.2 fL (7.4-10.4); MONOCYTES # (AUTO) 1.11 x10^3/uL (0.2-0.8); MONOCYTES % (AUTO) 10 % (2-9); NEUTROPHILS # (AUTO) 8.67 x10^3/uL (1.8-6.8); NEUTROPHILS % (AUTO) 81 % (42-75); PLATELET COUNT 238 x10^3/uL (130-400); RED BLOOD COUNT 3.61 x10^6/uL (4.38-5.82); RED CELL DISTRIBUTION WIDTH 13.6 % (9.4-14.8)
[2018-02-23 04:58] LABS: ALBUMIN 2.2 g/dL (3.4-5.0); ANION GAP 7 mmol/L (5-15); CHLORIDE 105 mmol/L (98-107); CREATININE 0.88 mg/dL (0.7-1.3)
[2018-02-23 06:54] VITALS: BP 162/82
[2018-02-23] MEDS: SODIUM CHLORIDE FLUSH 10ML SYR IVF SCH ×2 (07:45→21:43)
[2018-02-23] MEDS: THIAMINE 100MG TABLET PO SCH (07:45)
[2018-02-23] MEDS: MULTIVITAMIN 1 TABLET PO SCH (07:45)
[2018-02-23] MEDS: LISINOPRIL 20 MG TABLET PO SCH ×2 (07:45→21:42)
[2018-02-23] MEDS: FOLIC ACID 1 MG TABLET PO SCH (07:45)
[2018-02-23] MEDS: SENNA/DOCUSATE TABLET PO SCH (07:45)
[2018-02-23] MEDS: CYANOCOBALAMIN 1,000 MCG TABLET PO SCH (07:46)
[2018-02-23] MEDS: INSULIN LISPRO 100 UNITS/ML, PEN SQ-INSULIN SCH ×4 (07:46→21:44)
[2018-02-23] MEDS: DOXYCYCLINE 100MG TABLET PO SCH ×2 (10:07→21:42)
[2018-02-23] MEDS ORDERED: AMLODIPINE 5 MG TABLET PO SCH (11:30)
[2018-02-23 13:24] VITALS: BP 157/79
[2018-02-23] MEDS: ENOXAPARIN 40 MG/0.4 ML SQ SCH (15:49)
[2018-02-23] MEDS: HYDROcodone/APAP 5/325 TABLET PO PRN (15:49)
[2018-02-23 19:34] VITALS: BP 148/84
[2018-02-23] MEDS: INSULIN GLARGINE 100 UNITS/ML, PEN SQ-INSULIN SCH (21:43)
[2018-02-24 02:55] VITALS: BP 156/92
[2018-02-24] MEDS: AMPICILLIN/SULBACTAM 3 GM in SODIUM CHLORIDE 0.9% 100 ML IV SCH ×2 (03:48→08:47)
[2018-02-24 05:50] LABS: ALBUMIN 2.3 g/dL (3.4-5.0); ANION GAP 8 mmol/L (5-15); CALCIUM 8.2 mg/dL (8.5-10.1); CHLORIDE 106 mmol/L (98-107); CREATININE 0.73 mg/dL (0.7-1.3)
[2018-02-24 05:56] LABS: BASOPHILS # (AUTO) 0.03 x10^3/uL (0-0.1); BASOPHILS % (AUTO) 0 % (0-1); EOSINOPHILS # (AUTO) 0.11 x10^3/uL (0-0.4); EOSINOPHILS % (AUTO) 1 % (1-7); LYMPHOCYTES # (AUTO) 0.94 x10^3/uL (1-3.4); LYMPHOCYTES % (AUTO) 10 % (22-44); MD NO; MEAN CORPUSCULAR HEMOGLOBIN 32.1 pg (27.5-34.5); MEAN CORPUSCULAR HGB CONC 33.7 g/dL (33.2-36.2); MEAN CORPUSCULAR VOLUME 95.4 fL (81-97); MEAN PLATELET VOLUME 9.6 fL (7.4-10.4); MONOCYTES # (AUTO) 0.83 x10^3/uL (0.2-0.8); MONOCYTES % (AUTO) 9 % (2-9); NEUTROPHILS # (AUTO) 7.68 x10^3/uL (1.8-6.8); NEUTROPHILS % (AUTO) 80 % (42-75); PLATELET COUNT 293 x10^3/uL (130-400); RED CELL DISTRIBUTION WIDTH 13.8 % (9.4-14.8)
[2018-02-24 06:42] VITALS: BP 171/85
[2018-02-24] MEDS: INSULIN LISPRO 100 UNITS/ML, PEN SQ-INSULIN SCH (07:00)
[2018-02-24] MEDS ORDERED: AMOX1TAB64 PO (08:07)
[2018-02-24] MEDS ORDERED: AMLO5TAB7 PO (08:07)
[2018-02-24] MEDS ORDERED: DOXY100T PO (08:07)
[2018-02-24] MEDS: CYANOCOBALAMIN 1,000 MCG TABLET PO SCH (08:47)
[2018-02-24] MEDS: FOLIC ACID 1 MG TABLET PO SCH (08:47)
[2018-02-24] MEDS: MULTIVITAMIN 1 TABLET PO SCH (08:47)
[2018-02-24] MEDS: DOXYCYCLINE 100MG TABLET PO SCH (08:48)
[2018-02-24] MEDS: LISINOPRIL 20 MG TABLET PO SCH (08:48)
[2018-02-24] MEDS: SENNA/DOCUSATE TABLET PO SCH (08:48)
[2018-02-24] MEDS: SODIUM CHLORIDE FLUSH 10ML SYR IVF SCH (08:49)
[2018-02-24] MEDS ORDERED: AMLODIPINE 5 MG TABLET PO SCH (09:00)
[2018-02-24] MEDS: THIAMINE 100MG TABLET PO SCH (09:31)
== END 2018-02-24 10:15 | disposition home or self-care (01) | DRG 602 ==
LOC: ED 09:18 → EDIP 09:19 → ED 09:23 → 4EST 11:16 → DCLOUNGE 02-24 09:56
PROVIDERS: ADMIT Hospitalist; ATTEND Hospitalist
DX: L03.115 Cellulitis of right lower limb (principal); E43 Unspecified severe protein-calorie malnutrition; I50.30 Unspecified diastolic (congestive) heart failure; D64.9 Anemia, unspecified; K29.20 Alcoholic gastritis without bleeding; E11.51 Type 2 diabetes mellitus with diabetic peripheral angiopathy without gangrene; F10.10 Alcohol abuse, uncomplicated; I16.0 Hypertensive urgency; F17.210 Nicotine dependence, cigarettes, uncomplicated; I11.0 Hypertensive heart disease with heart failure; I71.4 Abdominal aortic aneurysm, without rupture; I87.2 Venous insufficiency (chronic) (peripheral); I87.8 Other specified disorders of veins; Z79.899 Other long term (current) drug therapy; M54.9 Dorsalgia, unspecified; G89.29 Other chronic pain
CPT/HCPCS: 36415; 71045; 80048; 80053; 82040; 82962; 83036; 83735; 83880; 84100; 84145; 84443; 84484; 85025; 85610; 87040; 93005; 96374; 99285; G0378; J0295; J1650; J3370; J1815; J3475; J7040

== ENCOUNTER 2018-05-08 19:05 | Emergency (ER) | payer MEDICARE, MEDICAID ==
[~2018-05-08] VITALS: Ht 195.6 cm; Wt 175.0 kg
[~2018-05-08 19:05] MED LIST changes: +AMLO-150 PO; -AMLO5TAB7 PO; -DICL75TA2 PO; +DICL75TA3 PO
--- NOTE | 2018-05-08 19:23 | NUR ---
Dr. Jacob at bedside to evaluate pt. Labs being drawn.
[2018-05-08] MEDS ORDERED: ASPIRIN 81 MG TABLET CHEW ONE (19:24)
[2018-05-08] MEDS ORDERED: ASPIRIN 81 MG TABLET CHEW PO ONE (19:30)
--- NOTE | 2018-05-08 19:40 | NUR ---
Pt to imaging, with tech, via [facility].
[2018-05-08 20:00] LABS: BASOPHILS # (AUTO) 0.06 x10^3/uL (0-0.1); BASOPHILS % (AUTO) 1 % (0-1); EOSINOPHILS # (AUTO) 0.09 x10^3/uL (0-0.4); EOSINOPHILS % (AUTO) 1 % (1-7); LYMPHOCYTES # (AUTO) 1.18 x10^3/uL (1-3.4); LYMPHOCYTES % (AUTO) 10 % (22-44); MD NO; MEAN CORPUSCULAR HEMOGLOBIN 31.8 pg (27.5-34.5); MEAN CORPUSCULAR HGB CONC 33.9 g/dL (33.2-36.2); MEAN CORPUSCULAR VOLUME 93.9 fL (81-97); MEAN PLATELET VOLUME 9.4 fL (7.4-10.4); MONOCYTES % (AUTO) 11 % (2-9); NEUTROPHILS # (AUTO) 8.82 x10^3/uL (1.8-6.8); NEUTROPHILS % (AUTO) 78 % (42-75); PLATELET COUNT 357 x10^3/uL (130-400); RED BLOOD COUNT 4.04 x10^6/uL (4.38-5.82); RED CELL DISTRIBUTION WIDTH 14.5 % (9.4-14.8)
[2018-05-08 20:05] LABS: ALANINE AMINOTRANSFERASE 28 U/L (12-78); ALBUMIN 2.9 g/dL (3.4-5.0); ANION GAP 8 mmol/L (5-15); CALCIUM 8.9 mg/dL (8.5-10.1); CHLORIDE 102 mmol/L (98-107); CREATININE 0.98 mg/dL (0.7-1.3)
[2018-05-08 20:09] LABS: ALKALINE PHOSPHATASE 70 U/L (45-117); BILIRUBIN,TOTAL 0.4 mg/dL (0.2-1.0); TOTAL PROTEIN 8.3 g/dL (6.4-8.2); TROPONIN I < 0.015 ng/mL (0.000-0.045)
--- NOTE | 2018-05-08 20:20 | NUR ---
Pt back to room from imaging, pt placed on all monitors. NSR noted. Pt c/o left lower leg pain/swelling/redness. Pt states that he has had this same problem "several times" and is always diagnosed with cellulitis.
[2018-05-08 21:06] VITALS: BP 147/84
--- NOTE | 2018-05-08 21:07 | NUR ---
Pt provided water, ok per . Pt now requesting Sprite, also ruiz per .
--- NOTE | 2018-05-08 21:20 | NUR ---
Dr. Jacob at bedside to discuss ED findings and d/c instructions.
== END 2018-05-08 21:37 | disposition home or self-care (01) ==
LOC: ED 20:57
DX: L03.116 Cellulitis of left lower limb (principal); M54.9 Dorsalgia, unspecified; G89.29 Other chronic pain; E11.9 Type 2 diabetes mellitus without complications; I10 Essential (primary) hypertension; F17.200 Nicotine dependence, unspecified, uncomplicated
CPT/HCPCS: 36415; 71045; 80053; 83605; 83880; 84484; 85025; 87040; 93005; 99284

== ENCOUNTER 2018-11-03 03:05 | Inpatient (IN) | payer MEDICARE, MEDICAID ==
[~2018-11-03] VITALS: Ht 195.6 cm; Wt 164.4 kg
[~2018-11-03 03:05] MED LIST changes: +ATOR40TA78 PO; +CARV12.543 PO; +CYAN-27 PO; -CYAN10005 PO; +FURO40TA6 PO; +SAXA5TAB PO
--- NOTE | 2018-11-03 03:45 | NUR ---
PT PRESENTS WITH C/O CHEST PAIN AFTER WALKING AROUND HIS APT COMPLEX TONIGHT. PT SITTING UP IN BED. NAD. VSS. PT HAS REDNESS TO RIGHT CALF. LYMPHEDEMA TO BILATERAL LEGS. PT HAS RIGHT GREAT TOE BANDAGED AND REPORTS AND ULCER TO THE LATERAL ASPECT.
[2018-11-03] MEDS ORDERED: ASPIRIN 81 MG TABLET CHEW ONE (03:50)
[2018-11-03] MEDS ORDERED: ASPIRIN 81 MG TABLET CHEW PO ONE (04:00)
[2018-11-03] MEDS ORDERED: ONDANSETRON ODT 4 MG ONE (04:07)
[2018-11-03 04:13] LABS: MEAN CORPUSCULAR HEMOGLOBIN 32.3 pg (27.5-34.5); MEAN CORPUSCULAR HGB CONC 33.4 g/dL (33.2-36.2); MEAN CORPUSCULAR VOLUME 96.8 fL (81-97); MEAN PLATELET VOLUME 9.8 fL (7.4-10.4); PLATELET COUNT 260 x10^3/uL (130-400); RED BLOOD COUNT 4.17 x10^6/uL (4.38-5.82); RED CELL DISTRIBUTION WIDTH 15.2 % (9.4-14.8)
[2018-11-03 04:22] LABS: ANION GAP 8 mmol/L (5-15); CALCIUM 8.3 mg/dL (8.5-10.1); CHLORIDE 102 mmol/L (98-107)
[2018-11-03 04:27] LABS: ALANINE AMINOTRANSFERASE 20 U/L (12-78); ALKALINE PHOSPHATASE 52 U/L (45-117); BILIRUBIN,TOTAL 0.7 mg/dL (0.2-1.0); CREATININE 1.34 mg/dL (0.7-1.3); TOTAL PROTEIN 7.5 g/dL (6.4-8.2); TROPONIN I < 0.015 ng/mL (0.000-0.045)
[2018-11-03] MEDS ORDERED: ONDANSETRON ODT 4 MG PO ONE (04:30)
--- NOTE | 2018-11-03 04:30 | NUR ---
PT SITTING UP IN CHAIR. PT REPORTS FEELING MUCH BETTER, CHEST PAIN HAS RESOLVED. PT REQUESTING DIET 7UP. AWAITING MD REEVAL. PT UPDATED ON POC.
[2018-11-03 04:36] LABS: MD YES
[2018-11-03 04:38] LABS: LYMPH#(MANUAL) 0.65 x10^3/uL (1-3.4); LYMPHS% (MANUAL) 3 % (22-44); SEGS% (MANUAL) 97 % (42-75)
[2018-11-03 04:39] LABS: <PLATELET ESTIMATE> ADEQUATE; <PLT MORPHOLOGY> NORMAL PLT MORPH; ANISOCYTOSIS 1+
[2018-11-03] MEDS ORDERED: CLINDAMYCIN PMX 600MG/50ML 50 ML ONE (04:56)
[2018-11-03] MEDS ORDERED: CLINDAMYCIN PMX 600MG/50ML 50 ML IV ONE (05:00)
--- NOTE | 2018-11-03 05:00 | NUR ---
EDMD AT BEDSIDE TO RE ASSESS PATIENT. PT SITTING UP IN CHAIR DRINKING DIET 7UP.
[2018-11-03 06:00] VITALS: BP 107/65
[2018-11-03] MEDS ORDERED: SODIUM CHLORIDE 0.9% 1,000 ML IV SCH (07:20)
[2018-11-03] MEDS ORDERED: PROMETHAZINE 25 MG/ML, 1ML IM PRN (07:30)
[2018-11-03] MEDS ORDERED: LABETALOL 5MG/ML, 20ML IVPush PRN (07:30)
[2018-11-03] MEDS ORDERED: BISACODYL 10 MG SUPP PR PRN (07:30)
[2018-11-03] MEDS ORDERED: DOCUSATE 100 MG CAPSULE PO PRN (07:30)
[2018-11-03] MEDS ORDERED: morphine SULFATE 10 MG/ML, 1ML IVPush PRN (07:30)
[2018-11-03] MEDS ORDERED: ONDANSETRON 2MG/ML, 2ML IVPush PRN (07:30)
[2018-11-03] MEDS ORDERED: POLYETHYLENE GLYCOL 17 GM PACKET PO PRN (07:30)
[2018-11-03] MEDS ORDERED: ONDANSETRON ODT 4 MG PO PRN (07:30)
[2018-11-03] MEDS ORDERED: hydrALAzine 20 MG/ML, 1ML IVPush PRN (07:30)
[2018-11-03] MEDS ORDERED: ACETAMINOPHEN 325 MG TABLET PO PRN (07:30)
[2018-11-03 08:15] LABS: HCT (SEDRATE) 40.3 % (39.2-51.8)
[2018-11-03] MEDS: MULTIVITAMIN 1 TABLET PO SCH (08:43)
[2018-11-03] MEDS: HEPARIN 5,000 UNITS/ML, 1ML SQ SCH ×2 (08:43→16:43)
[2018-11-03] MEDS: PIPERACILLIN/TAZO/PMX 3.375GM 50 ML IV SCH ×3 (08:43→20:39)
[2018-11-03] MEDS: LINAGLIPTIN 5 MG TAB PO SCH (08:43)
[2018-11-03] MEDS: LACTOBACILLUS CHEW TABLET PO SCH ×3 (08:43→20:39)
[2018-11-03] MEDS: CYANOCOBALAMIN 1,000 MCG TABLET PO SCH (08:44)
[2018-11-03] MEDS: CARVEDILOL 12.5 MG TABLET PO SCH ×2 (08:50→17:36)
[2018-11-03] MEDS: DICLOFENAC SODIUM 75 MG TABLET.DR PO SCH ×2 (08:50→20:39)
[2018-11-03 08:54] LABS: FREE T4 (FREE THYROXINE) 1.03 ng/dL (0.76-1.46)
[2018-11-03 08:55] LABS: HEMOGLOBIN A1C 6.2 % (4.2-6.3)
[2018-11-03] MEDS ORDERED: MAGNESIUM SULFATE PMX 2GM/50ML 50 ML IV ONE (09:00)
[2018-11-03] MEDS: INSULIN LISPRO 100 UNITS/ML, PEN SQ-INSULIN SCH ×3 (11:00→20:42)
[2018-11-03] MEDS: DAPTOMYCIN 675 MG in SODIUM CHLORIDE 0.9% 100 ML IV SCH (12:07)
[2018-11-03 14:01] VITALS: BP 113/60
[2018-11-03 15:21] LABS: ANION GAP 7 mmol/L (5-15); CALCIUM 8.2 mg/dL (8.5-10.1); CHLORIDE 103 mmol/L (98-107); CREATININE 1.42 mg/dL (0.7-1.3)
[2018-11-03 17:35] VITALS: BP 136/76
[2018-11-03 18:57] VITALS: BP 124/73
[2018-11-03] MEDS: ATORVASTATIN 40 MG TABLET PO SCH (20:39)
[2018-11-03] MEDS: INSULIN GLARGINE 100 UNITS/ML, PEN SQ-INSULIN SCH (21:34)
[2018-11-04] MEDS: OXYcodone IR 5MG TABLET PO PRN (00:05)
[2018-11-04] MEDS: HEPARIN 5,000 UNITS/ML, 1ML SQ SCH ×4 (00:05→23:51)
[2018-11-04 01:34] VITALS: BP 130/77
[2018-11-04] MEDS: PIPERACILLIN/TAZO/PMX 3.375GM 50 ML IV SCH ×4 (02:56→21:25)
[2018-11-04 05:58] LABS: BASOPHILS # (AUTO) 0.02 x10^3/uL (0-0.1); BASOPHILS % (AUTO) 0 % (0-1); EOSINOPHILS % (AUTO) 1 % (1-7); LYMPHOCYTES # (AUTO) 0.63 x10^3/uL (1-3.4); LYMPHOCYTES % (AUTO) 7 % (22-44); MD NO; MEAN CORPUSCULAR HEMOGLOBIN 31.4 pg (27.5-34.5); MEAN CORPUSCULAR VOLUME 95.1 fL (81-97); MEAN PLATELET VOLUME 9.6 fL (7.4-10.4); MONOCYTES # (AUTO) 0.42 x10^3/uL (0.2-0.8); MONOCYTES % (AUTO) 5 % (2-9); NEUTROPHILS # (AUTO) 8.04 x10^3/uL (1.8-6.8); NEUTROPHILS % (AUTO) 87 % (42-75); PLATELET COUNT 223 x10^3/uL (130-400); RED BLOOD COUNT 3.89 x10^6/uL (4.38-5.82); RED CELL DISTRIBUTION WIDTH 15.6 % (9.4-14.8)
[2018-11-04] MEDS: CARVEDILOL 12.5 MG TABLET PO SCH ×2 (06:07→18:04)
[2018-11-04 06:08] LABS: ALBUMIN 2.5 g/dL (3.4-5.0); ANION GAP 7 mmol/L (5-15); CALCIUM 8.6 mg/dL (8.5-10.1); CHLORIDE 105 mmol/L (98-107)
[2018-11-04 06:13] LABS: ALANINE AMINOTRANSFERASE 42 U/L (12-78); ALKALINE PHOSPHATASE 55 U/L (45-117); BILIRUBIN,TOTAL 0.6 mg/dL (0.2-1.0); CHOL/HDL RATIO 2.5; CHOLESTEROL, TOTAL 105 mg/dL (140-239); CREATININE 1.39 mg/dL (0.7-1.3); HDL CHOL % 40 % (26-37); HDL CHOLESTEROL (DIRECT) 42 mg/dL (40-60); LDL CHOLESTEROL,CALCULATED 32 mg/dL (54-169); LDL/HDL RATIO 0.8 (0.5-3.0); TOTAL PROTEIN 6.9 g/dL (6.4-8.2); TRIGLYCERIDES 153 mg/dL (50-200); VLDL CHOLESTEROL 31 mg/dL (0-25)
[2018-11-04] MEDS: INSULIN LISPRO 100 UNITS/ML, PEN SQ-INSULIN SCH ×4 (07:00→21:00)
[2018-11-04 07:32] VITALS: BP 142/84
[2018-11-04] MEDS: LINAGLIPTIN 5 MG TAB PO SCH (09:14)
[2018-11-04] MEDS: DICLOFENAC SODIUM 75 MG TABLET.DR PO SCH ×2 (09:14→21:10)
[2018-11-04] MEDS: MULTIVITAMIN 1 TABLET PO SCH (09:14)
[2018-11-04] MEDS: LACTOBACILLUS CHEW TABLET PO SCH ×3 (09:14→21:11)
[2018-11-04] MEDS: CYANOCOBALAMIN 1,000 MCG TABLET PO SCH (09:14)
[2018-11-04] MEDS: DAPTOMYCIN 675 MG in SODIUM CHLORIDE 0.9% 100 ML IV SCH (10:19)
[2018-11-04 13:37] VITALS: BP 132/75
[2018-11-04] MEDS ORDERED: GADOBUTROL 10 MMOL/10 ML PFS ONE (16:59)
[2018-11-04 19:46] VITALS: BP 125/65
[2018-11-04] MEDS: ATORVASTATIN 40 MG TABLET PO SCH (21:11)
[2018-11-04] MEDS: INSULIN GLARGINE 100 UNITS/ML, PEN SQ-INSULIN SCH (21:17)
[2018-11-05] MEDS: OXYcodone IR 5MG TABLET PO PRN (00:50)
[2018-11-05 01:10] VITALS: BP 154/94
[2018-11-05] MEDS: PIPERACILLIN/TAZO/PMX 3.375GM 50 ML IV SCH ×4 (02:56→20:33)
[2018-11-05] MEDS: CARVEDILOL 12.5 MG TABLET PO SCH ×2 (05:55→17:04)
[2018-11-05 06:59] VITALS: BP 151/89
[2018-11-05] MEDS: INSULIN LISPRO 100 UNITS/ML, PEN SQ-INSULIN SCH ×4 (07:00→20:32)
[2018-11-05] MEDS: DAPTOMYCIN 675 MG in SODIUM CHLORIDE 0.9% 100 ML IV SCH (08:08)
[2018-11-05] MEDS: LINAGLIPTIN 5 MG TAB PO SCH (08:09)
[2018-11-05] MEDS: DICLOFENAC SODIUM 75 MG TABLET.DR PO SCH ×2 (08:09→20:33)
[2018-11-05] MEDS: MULTIVITAMIN 1 TABLET PO SCH (08:09)
[2018-11-05] MEDS: LACTOBACILLUS CHEW TABLET PO SCH ×3 (08:09→20:33)
[2018-11-05] MEDS: HEPARIN 5,000 UNITS/ML, 1ML SQ SCH (08:09)
[2018-11-05] MEDS: CYANOCOBALAMIN 1,000 MCG TABLET PO SCH (08:09)
[2018-11-05] MEDS: ENOXAPARIN 80 MG/0.8 ML SQ SCH ×2 (11:09→20:33)
[2018-11-05 13:32] VITALS: BP 150/87
[2018-11-05 20:12] VITALS: BP 121/70
[2018-11-05] MEDS: ATORVASTATIN 40 MG TABLET PO SCH (20:33)
[2018-11-05] MEDS: INSULIN GLARGINE 100 UNITS/ML, PEN SQ-INSULIN SCH (20:34)
[2018-11-06] MEDS: OXYcodone IR 5MG TABLET PO PRN (00:49)
[2018-11-06 02:28] VITALS: BP 168/95
[2018-11-06] MEDS: PIPERACILLIN/TAZO/PMX 3.375GM 50 ML IV SCH ×4 (02:53→21:18)
[2018-11-06 05:22] VITALS: BP 152/77
[2018-11-06] MEDS: CARVEDILOL 12.5 MG TABLET PO SCH ×2 (05:23→17:30)
[2018-11-06 06:11] LABS: BASOPHILS # (AUTO) 0.03 x10^3/uL (0-0.1); BASOPHILS % (AUTO) 0 % (0-1); EOSINOPHILS # (AUTO) 0.07 x10^3/uL (0-0.4); EOSINOPHILS % (AUTO) 1 % (1-7); LYMPHOCYTES # (AUTO) 1.03 x10^3/uL (1-3.4); LYMPHOCYTES % (AUTO) 13 % (22-44); MD NO; MEAN CORPUSCULAR HGB CONC 33.1 g/dL (33.2-36.2); MEAN CORPUSCULAR VOLUME 96.8 fL (81-97); MEAN PLATELET VOLUME 9.1 fL (7.4-10.4); MONOCYTES # (AUTO) 0.67 x10^3/uL (0.2-0.8); MONOCYTES % (AUTO) 8 % (2-9); NEUTROPHILS # (AUTO) 6.38 x10^3/uL (1.8-6.8); NEUTROPHILS % (AUTO) 78 % (42-75); PLATELET COUNT 265 x10^3/uL (130-400); RED BLOOD COUNT 3.74 x10^6/uL (4.38-5.82); RED CELL DISTRIBUTION WIDTH 15.5 % (9.4-14.8)
[2018-11-06 06:24] LABS: ALANINE AMINOTRANSFERASE 33 U/L (12-78); ALBUMIN 2.5 g/dL (3.4-5.0); ANION GAP 6 mmol/L (5-15); CALCIUM 8.5 mg/dL (8.5-10.1); CHLORIDE 106 mmol/L (98-107); CREATININE 1.05 mg/dL (0.7-1.3)
[2018-11-06 06:26] LABS: ALKALINE PHOSPHATASE 57 U/L (45-117); BILIRUBIN,TOTAL 0.5 mg/dL (0.2-1.0); TOTAL PROTEIN 7.4 g/dL (6.4-8.2)
[2018-11-06] MEDS: INSULIN LISPRO 100 UNITS/ML, PEN SQ-INSULIN SCH ×4 (07:00→21:00)
[2018-11-06 07:50] VITALS: BP 154/81
[2018-11-06] MEDS: DAPTOMYCIN 675 MG in SODIUM CHLORIDE 0.9% 100 ML IV SCH (08:36)
[2018-11-06] MEDS: LINAGLIPTIN 5 MG TAB PO SCH (08:36)
[2018-11-06] MEDS: DICLOFENAC SODIUM 75 MG TABLET.DR PO SCH ×2 (08:36→21:20)
[2018-11-06] MEDS: MULTIVITAMIN 1 TABLET PO SCH (08:36)
[2018-11-06] MEDS: LACTOBACILLUS CHEW TABLET PO SCH ×3 (08:36→21:20)
[2018-11-06] MEDS: CYANOCOBALAMIN 1,000 MCG TABLET PO SCH (08:37)
[2018-11-06] MEDS: ENOXAPARIN 80 MG/0.8 ML SQ SCH ×2 (08:47→21:21)
[2018-11-06 14:32] VITALS: BP 157/78
[2018-11-06 19:36] VITALS: BP 155/88
[2018-11-06] MEDS: ATORVASTATIN 40 MG TABLET PO SCH (21:20)
[2018-11-06] MEDS: INSULIN GLARGINE 100 UNITS/ML, PEN SQ-INSULIN SCH (21:27)
[2018-11-07 01:57] VITALS: BP 167/95
[2018-11-07] MEDS: OXYcodone IR 5MG TABLET PO PRN ×2 (02:35→11:09)
[2018-11-07] MEDS: PIPERACILLIN/TAZO/PMX 3.375GM 50 ML IV SCH ×4 (03:01→20:20)
[2018-11-07] MEDS: CARVEDILOL 12.5 MG TABLET PO SCH ×2 (06:12→18:09)
[2018-11-07] MEDS: INSULIN LISPRO 100 UNITS/ML, PEN SQ-INSULIN SCH ×4 (07:00→20:22)
[2018-11-07 07:21] VITALS: BP 144/83
[2018-11-07] MEDS: DAPTOMYCIN 675 MG in SODIUM CHLORIDE 0.9% 100 ML IV SCH (07:51)
[2018-11-07] MEDS: CYANOCOBALAMIN 1,000 MCG TABLET PO SCH (10:00)
[2018-11-07] MEDS: ENOXAPARIN 80 MG/0.8 ML SQ SCH (10:00)
[2018-11-07] MEDS: MULTIVITAMIN 1 TABLET PO SCH (10:00)
[2018-11-07] MEDS: DICLOFENAC SODIUM 75 MG TABLET.DR PO SCH ×2 (10:00→20:21)
[2018-11-07] MEDS: LACTOBACILLUS CHEW TABLET PO SCH ×3 (10:00→20:21)
[2018-11-07] MEDS: LINAGLIPTIN 5 MG TAB PO SCH (10:00)
[2018-11-07] MEDS: LISINOPRIL 20 MG TABLET PO SCH ×2 (12:14→20:21)
[2018-11-07] MEDS: FUROSEMIDE 40 MG TABLET PO SCH (12:14)
[2018-11-07 12:38] VITALS: BP 155/93
[2018-11-07 19:50] VITALS: BP 165/98
[2018-11-07] MEDS: INSULIN GLARGINE 100 UNITS/ML, PEN SQ-INSULIN SCH (20:20)
[2018-11-07] MEDS: APIXABAN 5 MG TABLET PO SCH (20:21)
[2018-11-07] MEDS: ATORVASTATIN 40 MG TABLET PO SCH (20:21)
[2018-11-08 01:58] VITALS: BP 157/106
[2018-11-08] MEDS: PIPERACILLIN/TAZO/PMX 3.375GM 50 ML IV SCH ×4 (02:48→21:55)
[2018-11-08] MEDS: CARVEDILOL 12.5 MG TABLET PO SCH ×2 (06:12→19:51)
[2018-11-08] MEDS: INSULIN LISPRO 100 UNITS/ML, PEN SQ-INSULIN SCH ×4 (07:00→19:50)
[2018-11-08] MEDS: DAPTOMYCIN 675 MG in SODIUM CHLORIDE 0.9% 100 ML IV SCH (08:02)
[2018-11-08 08:19] VITALS: BP 161/93
[2018-11-08] MEDS: LACTOBACILLUS CHEW TABLET PO SCH ×3 (08:59→19:50)
[2018-11-08] MEDS: MULTIVITAMIN 1 TABLET PO SCH (08:59)
[2018-11-08] MEDS: DICLOFENAC SODIUM 75 MG TABLET.DR PO SCH ×2 (08:59→19:51)
[2018-11-08] MEDS: LISINOPRIL 20 MG TABLET PO SCH ×2 (08:59→19:50)
[2018-11-08] MEDS: LINAGLIPTIN 5 MG TAB PO SCH (08:59)
[2018-11-08] MEDS: APIXABAN 5 MG TABLET PO SCH ×2 (08:59→19:50)
[2018-11-08] MEDS: FUROSEMIDE 40 MG TABLET PO SCH (09:00)
[2018-11-08] MEDS: CYANOCOBALAMIN 1,000 MCG TABLET PO SCH (09:00)
[2018-11-08] MEDS: OXYcodone IR 5MG TABLET PO PRN (09:03)
[2018-11-08 13:43] VITALS: BP 146/72
[2018-11-08 19:07] VITALS: BP 174/105
[2018-11-08 19:39] VITALS: BP 147/78
[2018-11-08] MEDS: ATORVASTATIN 40 MG TABLET PO SCH (19:50)
[2018-11-08] MEDS: INSULIN GLARGINE 100 UNITS/ML, PEN SQ-INSULIN SCH (19:50)
[2018-11-09 01:59] VITALS: BP 160/101
[2018-11-09] MEDS: PIPERACILLIN/TAZO/PMX 3.375GM 50 ML IV SCH ×2 (03:27→10:01)
[2018-11-09 03:32] VITALS: BP 145/88
[2018-11-09] MEDS: CARVEDILOL 12.5 MG TABLET PO SCH (05:25)
[2018-11-09 05:45] LABS: BASOPHILS # (AUTO) 0.03 x10^3/uL (0-0.1); BASOPHILS % (AUTO) 0 % (0-1); EOSINOPHILS # (AUTO) 0.16 x10^3/uL (0-0.4); EOSINOPHILS % (AUTO) 2 % (1-7); HCT (SEDRATE) 37.6 % (39.2-51.8); LYMPHOCYTES # (AUTO) 1.36 x10^3/uL (1-3.4); LYMPHOCYTES % (AUTO) 17 % (22-44); MD NO; MEAN CORPUSCULAR HEMOGLOBIN 31.1 pg (27.5-34.5); MEAN CORPUSCULAR HGB CONC 32.8 g/dL (33.2-36.2); MEAN CORPUSCULAR VOLUME 95.1 fL (81-97); MEAN PLATELET VOLUME 8.7 fL (7.4-10.4); MONOCYTES # (AUTO) 0.81 x10^3/uL (0.2-0.8); MONOCYTES % (AUTO) 10 % (2-9); NEUTROPHILS # (AUTO) 5.68 x10^3/uL (1.8-6.8); NEUTROPHILS % (AUTO) 71 % (42-75); PLATELET COUNT 366 x10^3/uL (130-400); RED BLOOD COUNT 3.96 x10^6/uL (4.38-5.82); RED CELL DISTRIBUTION WIDTH 15.2 % (9.4-14.8)
[2018-11-09 05:47] LABS: ALBUMIN 2.6 g/dL (3.4-5.0); ANION GAP 5 mmol/L (5-15); CALCIUM 8.7 mg/dL (8.5-10.1); CHLORIDE 107 mmol/L (98-107)
[2018-11-09 06:00] LABS: ALANINE AMINOTRANSFERASE 32 U/L (12-78); ALKALINE PHOSPHATASE 56 U/L (45-117); BILIRUBIN,TOTAL 0.4 mg/dL (0.2-1.0); CREATINE KINASE, TOTAL 67 U/L (39-308); CREATININE 1.01 mg/dL (0.7-1.3); TOTAL PROTEIN 7.6 g/dL (6.4-8.2)
[2018-11-09] MEDS: INSULIN LISPRO 100 UNITS/ML, PEN SQ-INSULIN SCH ×2 (07:00→11:00)
[2018-11-09 08:00] VITALS: BP 144/89
[2018-11-09] MEDS: MULTIVITAMIN 1 TABLET PO SCH (08:13)
[2018-11-09] MEDS: DAPTOMYCIN 675 MG in SODIUM CHLORIDE 0.9% 100 ML IV SCH (08:13)
[2018-11-09] MEDS: DICLOFENAC SODIUM 75 MG TABLET.DR PO SCH (08:13)
[2018-11-09] MEDS: FUROSEMIDE 40 MG TABLET PO SCH (08:13)
[2018-11-09] MEDS: LINAGLIPTIN 5 MG TAB PO SCH (08:13)
[2018-11-09] MEDS: LISINOPRIL 20 MG TABLET PO SCH (08:13)
[2018-11-09] MEDS: APIXABAN 5 MG TABLET PO SCH (08:13)
[2018-11-09] MEDS: LACTOBACILLUS CHEW TABLET PO SCH (08:13)
[2018-11-09] MEDS: CYANOCOBALAMIN 1,000 MCG TABLET PO SCH (08:13)
[2018-11-09] MEDS ORDERED: OXYC5TAB3 PO (13:27)
[2018-11-09] MEDS ORDERED: LINE600T2 PO (13:27)
[2018-11-09] MEDS ORDERED: APIX5TAB PO (13:27)
[2018-11-09] MEDS ORDERED: AMOX1TAB64 PO (13:27)
== END 2018-11-09 14:24 | disposition home or self-care (01) | DRG 299 ==
LOC: ED 04:07 → MERGE 04:07 → EDIP 04:58 → 3NE 05:55 → DCLOUNGE 11-09 14:10
PROVIDERS: ADMIT Internal Medicine; ATTEND Internal Medicine
DX: I82.411 Acute embolism and thrombosis of right femoral vein (principal); N17.0 Acute kidney failure with tubular necrosis; L03.115 Cellulitis of right lower limb; I50.32 Chronic diastolic (congestive) heart failure; E44.0 Moderate protein-calorie malnutrition; D47.Z2 Castleman disease; Z68.41 Body mass index [BMI] 40.0-44.9, adult; D72.823 Leukemoid reaction; E11.9 Type 2 diabetes mellitus without complications; E66.01 Morbid (severe) obesity due to excess calories; E78.5 Hyperlipidemia, unspecified; F17.200 Nicotine dependence, unspecified, uncomplicated; I11.0 Hypertensive heart disease with heart failure; I71.4 Abdominal aortic aneurysm, without rupture; I89.0 Lymphedema, not elsewhere classified; Z88.8 Allergy status to other drugs, medicaments and biological substances
CPT/HCPCS: 36415; 71045; 80048; 80053; 80061; 82550; 82962; 83036; 83605; 83735; 83880; 84439; 84443; 84484; 85025; 85651; 86140; 87040; 93005; 93306; 96374; 99285; A9585; G0378; J0878; J1644; J1650; J2543; Q0162; J1815; J3475; J7030